=== PATIENT | female | born 1930 | race Caucasian/White ===

== ENCOUNTER 2017-02-25 18:14 | Inpatient (IN) ==
[2017-02-25] MEDS ORDERED: ONDANSETRON 4 MG/2 ML VIAL IV STA (18:34)
[2017-02-25] MEDS ORDERED: hydrALAZINE 20 MG/1 ML VIAL IV STA (18:35)
--- NOTE | 2017-02-25 18:38 | Emergency Department Note ---
Arrival - Arrival Chief Complaint: Dizziness ED Nursing Triage Note: Patient to ER 20 via EMS. Complains of onset of vertigo. Patient got dizzy and almost passed out. EMS reports patient had a bout of bradycardia enroute with a rate in the 40s. Resolved after 20-30 secs. Mode of Arrival: Stretcher Limitations: No Limitations Source: Patient Time Seen by Provider: 02/25/17 18:34 - History of Present Illness HPI Narrative: This 86-year-old white female presents with a history of abrupt onset of dizziness associated with nausea and near syncope. The patient subsequently stabilized after several minutes at rest. She denies any chest pain, shortness of breath, jose vomiting, visual changes, slurred speech, headache, or focal deficit with this episode. The patient walked over to her neighbors who called EMS who on arrival to the scene, found the patient to have a heart rate in the 40s. Currently she states the dizziness has practically gone away but still has some low-grade nausea. She states that she frequently has such episodes when her blood pressure is high and that her current physician is having difficulty keeping her blood pressure under control. Currently she is in no acute medical distress. Onset (ago): hour(s) (Patient presents 3 hours post onset of symptoms) Date of Last Menstrual Period: Hysterectomy Allergies/Adverse Reactions: Allergies Allergy/AdvReac Type Severity Reaction Status Date / Time No Known Allergies Allergy Unverified 02/25/17 19:04 Review of System - Review of System 12 point system: reviewed and no additional remarkable complaints except as stated - Review of System Constitutional: Present: as per HPI Respiratory: Present: as per HPI Cardiovascular: Present: as per HPI Gastrointestinal: Present: as per HPI Neurological: Present: as per HPI Medical,Surgical,& Family Hx - Medical History Cardio: History of: Hypertension Neurology: History of: Dementia - Surgical History Reproductive Surgeries: Surgical HX of;: Hysterectomy - Social History Smoking Status: Never smoker Frequency of Alcohol Use: None Type of Drug Use: None Exam Physical Examination: GENERAL: Well developed, well nourished elderly white female in no acute distress. HEENT: Normocephalic. No trauma. Moist mucous membranes. EOMI. PERRLA. ENT NML NECK: Supple. No adenopathy. CARDIAC: Regular. Heart rate 42, 1/4 mireya, loud p2 CHEST: Clear to auscultation. No respiratory distress. O2 sat 95% ABDOMEN: Soft. Nontender. Active bowel sounds. EXTREMITIES: No trauma. Normal ROM. No pedal edema. SKIN: No diaphoresis. No rash. NEURO: Alert. Oriented 3. Motor, sensory, vibratory intact. No focal deficits. Vital Signs: Vital Signs Temperature 97.3 F L 02/25/17 18:43 Pulse Rate 58 L 02/25/17 18:43 Respiratory Rate 16 02/25/17 18:43 Blood Pressure 225/74 02/25/17 18:43 O2 Sat by Pulse Oximetry 98 02/25/17 18:43 Course - Reevaluation(s) Reevaluation #1: Advised patient because of her evidence of early failure, labile blood pressure , and labile heart rate that she would require hospitalization. - Consultations Consultation #1: Discussed with the hospitalist service who will admit for further evaluation treatment. Results - Labs CBC & BMP: 02/25/17 18:50 02/25/17 18:50 Labs: I have reviewed the laboratory noted the gross normality of results. - Impressions EKG: Sinus rhythm at 65 with occasional PACs. Normal [place] interval and QRS duration. Evidence of left ventricular hypertrophy with early strain pattern. No acute injury pattern noted. - Diagnostic Findings Procedure: Chest x-ray: image reviewed by me, report reviewed by me ( Cardiomegaly with evidence of early bibasilar pulmonary edema), CT: image reviewed by me, report reviewed by me (Head: Minimal cerebral atrophy otherwise negative CT) Disposition Clinical Impression: Congestive heart failure, Labile blood pressure, Near syncope Case discussed with: patient Disposition: Still a Patient Condition: Guarded Time of Disposition: 21:11
[2017-02-25] MEDS ORDERED: ONDANSETRON 4 MG/2 ML VIAL ONE (18:50)
[2017-02-25] MEDS ORDERED: hydrALAZINE 20 MG/1 ML VIAL ONE (18:50)
[2017-02-25 19:08] LABS: Basophils % 0.7 % (0.0-0.8); Eosinophils % 0.5 % (0.00-10.9); Hematocrit 36.1 VOL% (35.7-47.0); Hemoglobin 12.1 GM/DL (12.0-16.0); Immature Granulocytes % 0.2 %; Immature Granulocytes Absolute 0.01 #; Lymphocytes # 0.8 10*3/uL (1.4-4.0); Mean Corpuscular HGB Conc 33.5 GM/DL (32-36); Mean Corpuscular Hemoglobin 31 PG (27-34); Mean Corpuscular Volume 92.6 FL (87-102); Mean Platelet Volume 10.4 FL (9.6-12.0); Monocytes # 0.3 10*3/uL (0.11-0.8); Monocytes % 4.6 % (1.7-12.7); Neutrophils # 4.5 10*3/uL (1.4-7.4); Platelet Count 147 T/CUMM (130-400); Red Cell Distribution Width 12.4 % (9.3-17.3); White Blood Count 5.7 T/CUMM (4-12)
--- NOTE | 2017-02-25 19:09 | CT Report ---
History: Dizziness Date: 02/25/2017 Study: CT head without contrast Comparison exam: No previous Transaxial CT sections were obtained through the head without IV contrast. This CT exam was performed using one or more the following dose reduction techniques: Automated exposure control, adjustment of the MA and/or KV according to patient size, or use of iterative reconstruction technique. The ventricles are midline in position without evidence of hydrocephalus. There is no mass or parenchymal hemorrhage. There is no gross CT evidence of acute cortical stroke. There is minimal cerebral atrophy. There is no extra-axial hematoma. There is moderate distal carotid artery calcification. The partially visualized paranasal sinuses and mastoid air cells are clear. There is no acute abnormality of the calvarium. Impression: No acute intracranial process PROCEDURE INTERPRETED AT [facility] DEPARTMENT OF RADIOLOGY Final Report Signed by: Dr. Ida Rowell
[2017-02-25 19:14] LABS: Apearance,Urine CLEAR (Clear); Bilirubin,Urine Negative (Negative); Blood, Urine Negative (Negative); Glucose,Urine (UA) Negative (Negative); Ketones,Urine 5 mg/dL (Negative); Nitrite,Urine Negative (Negative); Protein,Urine 100 MG/DL; RBC,Urine 3 /HPF (0-4); Squamous Epithelial Cell,Urine Occasional /HPF (0-10); Urine Color Colorless (Yellow); Urine Specific Gravity 1.005 (1.001-1.035); Urine Urobilinogen < 2.0 EU/DL (0.2-1.0); WBC,Urine 2 /HPF (0-6)
[2017-02-25 19:17] LABS: PT Patient Result 10.3 SECS
[2017-02-25 19:18] LABS: Barbiturates Screen,Urine Negative (Negative); Benzodiazepines Screen,Urine Negative (Negative); Cannabinoid Screen,Urine Negative (Negative); Opiate Screen,Urine Negative (Negative); Phencyclidine Screen,Urine Negative (Negative)
[2017-02-25 19:55] LABS: Alanine Aminotransferase 17 U/L (13-56); Albumin 3.9 G/DL (3.4-5.0); Alkaline Phosphatase 61 U/L (45-117); Aspartate Amino Transferase 22 U/L (0-37); Blood Urea Nitrogen 15 MG/DL (7-18); Calcium 8.7 MG/DL (8.5-10.1); Glucose 132 MG/DL (74-106); Osmolality,Calculated 279.5 MOS/KG (273-304); Potassium 3.4 MMOL/L (3.5-5.1); Sodium 139 MMOL/L (136-145); Total Protein 7.3 G/DL (6.4-8.3); Troponin I Only < 0.015 NG/ML (0.00-0.045)
--- NOTE | 2017-02-25 20:34 | XRay Report ---
History: Shortness of breath Date: 02/25/2017 Study: Chest x-ray AP portable Comparison exam: No previous available There is mild cardiomegaly. The pulmonary vasculature is borderline prominent. There is moderate aortic arch calcification. There is no pleural effusion. There is minimal hazy edema in the lower lungs. There is no jose pneumonia. There is osteopenia and mild thoracic spondylosis. Impression: Cardiomegaly and suspected mild CHF PROCEDURE INTERPRETED AT [facility] DEPARTMENT OF RADIOLOGY Final Report Signed by: Dr. Ida Rowell
--- NOTE | 2017-02-25 22:12 | Hospitalist History & Physical ---
History of Present Illness Chief complaint: dizziness History of present illness: Ms. Giles is a 86 year old female who presents with dizzness that happened today while cleaning her house. She states that she just did not feel right. She felt as if she was about to pass out. She notes that her heart was beating "funny". EMS was called and noted brief episodes of bradycardia with heart rates in the 40s. Patient denies any vertigo/lightheadness/jose palpitations/ CP/vision changes/falls. She also endorses some SOB for the past month. She denies any LE swelling/increasing abdominal girth/weight gain/PND/orthopnea. She states that she takes her medications on a regular basis. She states that she has been eating and drinking without any problems. While in the ER, her blood presure was elevated, and she was given hydralazine. She was also found to have CHF. Allergies Allergy/AdvReac Type Severity Reaction Status Date / Time No Known Allergies Allergy Unverified 02/25/17 19:04 Medical,Surgical,& Family Hx - Medical History Cardio: History of: Hypertension Neurology: History of: Dementia - Surgical History Reproductive Surgeries: Surgical HX of;: Hysterectomy - Social History Smoking Status: Never smoker Frequency of Alcohol Use: None Type of Drug Use: None - Constitutional Constitutional: Present: as per HPI. Absent: frequent falls, headache(s) - Cardiovascular Cardiovascular: Present: as per HPI - Respiratory Respiratory: Present: as per HPI. Absent: cough - Gastrointestinal Gastrointestinal: Present: as per HPI. Absent: abdominal pain - Neurological Neurological: Absent: headache(s) Exam - Constitutional Vitals: Period Temp Pulse Resp BP Sys/Greene Pulse Ox Last 24 Hr 97.3 F-97.3 F 58-58 16-16 225-225/74-74 95-98 General appearance: no acute distress - Head Head exam: Present: normal inspection - Eye Eye exam: Present: EOMI Pupils: Present: normal accommodation - ENT ENT exam: Present: normal exam - Respiratory Respiratory exam: Present: decreased breath sounds, rales, other (bibasilar crackles, descent air movement). Absent: rhonchi, wheezes - Cardiovascular Cardiovascular exam: Present: regular rate and rhythm - GI/Abdominal GI/Abdominal exam: Present: normal bowel sounds, soft. Absent: distended, tenderness - Extremities Exam Extremities exam: Absent: edema - Neurological Exam Neurological exam: Present: oriented X3 (hard of hearing) - Psychiatric Psychiatric exam: Present: normal affect, normal mood - Skin Skin exam: Present: normal color Results - Labs CBC & BMP: 02/25/17 18:50 02/25/17 18:50 - Impressions Head CT: no acute abnormalities Cxray: cardiomegaly, mild CHF EKG: NSR with PVCs, LVH with early repolarization Assessment: 1. Presyncopal episode, concerned that dizziness may have been 2nd to TIA given elevated blood pressure 2. Hypertensive crises, initial blood pressure: 225/74 3. New onset CHF, looks euvolemic; suspect cardiac decompensation may be 2nd to uncontrolled blood pressure 4. DYLAN 5. Bradycardia as noted by EMS 6. hypok: mild 7. Comorbid conditions: history of HTN and dementia Plan: telemetry; consult cardiology given reported bradycardia by EMS; will need an echo; check TSH, t4; keep K at least 4 and magnesium at least 2; trend Troponins ; control blood pressure; gentle diuresis; monitor renal functions and UOP; obtain brain MRI and carotid duplex; DVT and GI prophalaxis. The plan of care may be modified as more information becomes available.
[2017-02-25] MEDS ORDERED: FUROSEMIDE 40 MG/4 ML VIAL IV STA (22:33)
[2017-02-25] MEDS ORDERED: POTASSIUM CHLORIDE 20 MEQ TABLET PO STA (22:36)
[2017-02-25] MEDS ORDERED: FUROSEMIDE 40 MG/4 ML VIAL ONE (23:01)
[2017-02-25] MEDS ORDERED: POTASSIUM CHLORIDE 20 MEQ TABLET PO ONE (23:02)
--- NOTE | 2017-02-26 02:54 | EKG Report ---
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
[2017-02-26 06:04] LABS: Calcium 9.3 MG/DL (8.5-10.1); Free T4 (Free Thyroxine) 0.86 NG/DL (0.76-1.46); Magnesium 2.4 MG/DL (1.8-2.4); Osmolality,Calculated 279.5 MOS/KG (273-304); Potassium 3.5 MMOL/L (3.5-5.1); Thyroid Stimulating Hormone 1.32 uIU/ml (0.358-3.74)
--- NOTE | 2017-02-26 08:30 | Cardiology Consult Note ---
<Anny Finney - Last Filed: 02/26/17 09:59> Assessment and Plan - Time spent with patient Time spent with patient: Greater than 30 minutes (1) Bradycardia Status: Acute Assessment and plan: See plan of care listed below. Current Visit: Yes (2) Congestive heart failure Status: Acute Assessment and plan: See plan of care listed below. Current Visit: Yes (3) Hypertensive crisis Status: Acute Assessment and plan: See plan of care listed below. Current Visit: Yes (4) Pre-syncope Status: Acute Assessment and plan: See plan of care listed below. Current Visit: Yes (5) History of dementia Status: Chronic Assessment and plan: See plan of care listed below. Current Visit: Yes (6) Acute kidney injury Status: Acute Assessment and plan: See plan of care listed below. Current Visit: Yes History of Present Illness - Data of Consult Patient: new to practice Consult date: 02/26/17 Requesting Physician: Clive Ward Primary care physician: Armando Augustine - Consult Narrative Reason for consult: bradycardia, new onset CHF History of present illness: Planning Specialist: New to cardiology. (Dr. Becerril, [facility]) PCP: Dr. Armando Augustine Ms. Giles is a 86 year old female without known history of CAD, not routinely followed by cardiology. Patient has cardiac risk factors significant for hypertension, advanced age and sedentary lifestyle. Patient is a lifetime non- smoker and denies any significant family history of heart disease. Patient has a past medical history of significant dementia. She denies any history of congestive heart failure. Reports that she has never undergone cardiac evaluation. Denies history of heart catheterization and stress testing. Cardiology has been consulted to further evaluate patient's bradycardia and new onset congestive heart failure. Patient has a history of significant dementia. Therefore, majority of this information was obtained from medical personnel and patient's electronic medical record. Review of systems unobtainable. No family at bedside. Upon entering the room, patient was lying flat in bed with no acute distress. Not requiring oxygen. When asked what brought her into the hospital, she simply stated "I do not know, I forget a lot." Patient presented to [facility] yesterday evening with complaints of dizziness while cleaning her house. She apparently just did not feel right. She denies experiencing any type of chest pain, heaviness and tightness. EMS was summoned. Upon their arrival, they noticed episodes of bradycardia with patient's heart rate in the 40s. Patient denies jose palpitations, vision changes and falls. She denies prior history of arrhythmias. She also denies orthopnea. Reports that she only uses one pillow every night to sleep. Denies lower extremity edema, increased abdominal girth and weight gain. She actually reports that she has lost weight and is the skinniest she has ever been. Patient does confirm dyspnea on exertion over the past 1 month as well as easy fatigability. On arrival to the emergency department, her blood pressure was noted to be 225/74. Patient does report compliance with her blood pressure medications. Chest x- ray reveals cardiomegaly with suspected mild CHF. BNP 625, in the setting of creatinine of 1.4. EKG reveals sinus rhythm with occasional PVCs. LVH and ST- T changes. Troponin negative 1. This could be secondary to patient's severely uncontrolled hypertension or secondary to underlying coronary artery disease. Patient has never undergone heart catheterization. I will continue to cycle cardiac biomarkers and EKGs and keep patient n.p.o. I will further discuss with Dr. Becerril and await his additional recommendations regarding further cardiac workup. Patient may not be a good candidate for heart catheterization due to her history of dementia. Compliance may be an issue. Daily weights and strict I's and O's. Further recommendations to follow per Dr. Becerril. ASSESSMENT/PLAN 1. BRADYCARDIA - Upon arrival to emergency department, patient's heart rate was 58. Now in the mid 40s. Asymptomatic. EKG reveals sinus bradycardia with occasional PVCs. Will continue to monitor on the telemetry unit. Will further discuss with Dr. Becerril and await his additional recommendations. 2. NEW ONSET CHF - Unknown etiology. Echocardiogram pending. Chest x-ray reveals mild CHF. BNP 625, in the setting of a creatinine 1.4. Received IV Lasix in the emergency department. EKG reveals sinus rhythm with occasional PVCs. LVH and ST-T changes. Troponin negative 1. This could be secondary to patient's severely uncontrolled hypertension or secondary to underlying coronary artery disease. Patient has never undergone heart catheterization. I will continue to cycle cardiac biomarkers and EKGs and keep patient n.p.o. I will further discuss with Dr. Becerril and await his additional recommendations regarding further cardiac workup. Patient may not be a candidate for heart catheterization due to her history of dementia. Compliance may be an issue. Daily weights and strict I's and O's. 3. HYPERTENSIVE CRISIS - Suspect that this is contributing to her congestive heart failure. Blood pressure 225/74 upon admission. Avoiding beta blockade due to bradycardia. Avoiding LUZ inhibitor and ARB due to fear of worsening renal function. At this point, I will increase her Norvasc to 10 mg daily and add hydralazine 25 3 times daily. Do not want to lower her blood pressure too quickly. Will continue to monitor blood pressure and adjust medications accordingly. 4. DIZZINESS/PRESYNCOPE - Head CT without acute abnormality. Carotid ultrasound pending. Patient will undergo MRI today. Suspect possible TIA secondary to her severely uncontrolled hypertension. Patient's bradycardia could also be playing a role. We will continue to monitor patient on the apron man and observe for bradycardia and/or arrhythmias. I will further discuss with Dr. Becerril and await his additional recommendations. 5. HISTORY OF DEMENTIA - Defer management this to attending. 6. ACUTE KIDNEY INJURY - Creatinine 1.4 today. Unknown chronicity. Most likely secondary to patient's uncontrolled BP. Will attempt to achieve BP controll and avoid neophrotoxic medications. Daily BMP. May benefit from renal consult. Will defer to attending. CC: Lorenzo Sanford MD - Home Medications and Allergies Allergies/Adverse Reactions: Allergies Allergy/AdvReac Type Severity Reaction Status Date / Time No Known Allergies Allergy Unverified 02/25/17 19:04 ROS unobtainable: due to dementia Medical,Surgical,& Family Hx - Medical History Cardio: History of: Hypertension Neurology: History of: Dementia - Surgical History Cardiac Surgeries: Patient Denies: Cardiac Catheterization - Family History Family History: Denies;: Family Heart Disease - Social History Smoking Status: Never smoker Frequency of Alcohol Use: None Type of Drug Use: None Marital Status: Single Lives With:: Alone Functional capacity: independent ambulation Physical Examination Vital Signs Temp Pulse Resp BP Pulse Ox 97.3 F L 58 L 16 225/74 95 02/25/17 18:17 02/25/17 18:17 02/25/17 18:17 02/25/17 18:17 02/25/17 18:17 Exam: General: Appears well with no apparent distress. Appears comfortable. Demented. HEENT: PERRL, normocephalic, atraumatic. Mucous membranes moist. No jaundice noted. Conjunctiva moist and clear, sclerae anicteric Neck: No JVD/HJR, no thyromegaly or lymphadenopathy noted. Bilateral carotid bruits. Cardiac: Regular rhythm, bradycardia. No murmur rub or gallop. Lungs: Lungs clear throughout without accessory muscle use to assist the respiratory pattern. Abdomen: Soft, bowel sounds normoactive. Nontender and nondistended. No abdominal bruit or thrill noted. No masses noted. Extremities: No clubbing, cyanosis noted. No edema noted. Capillary refill less than 3 seconds. Skin: No unusual lesions or rashes. No skin breakdown appreciated. Neuro: Awake. Oriented to person. No essential tremor is appreciated. Result/EKG - Labs CBC & BMP: 02/25/17 18:50 02/26/17 04:07 Lab Results: I have reviewed the past 24 hour labs Labs: Laboratory Results - last 24 hr 02/25/17 02/25/17 02/25/17 18:50 18:50 18:50 WBC 5.7 RBC 3.90 Hgb 12.1 Hct 36.1 MCV 92.6 MCH 31 MCHC 33.5 RDW 12.4 Plt Count 147 MPV 10.4 Neut % (Auto) 80.0 H Lymph % (Auto) 14.0 L Pine % (Auto) 4.6 Eos % (Auto) 0.5 Baso % (Auto) 0.7 Neut # (Auto) 4.5 Lymph # (Auto) 0.8 L Pine # (Auto) 0.3 Eos # (Auto) 0.0 Baso # (Auto) 0.0 Immature Gran % 0.2 Nucleated RBC % 0.0 Immature Gran # 0.01 Nucleated RBCs # 0.00 INR 1.0 PT Patient/Control Mix 10.3 Sodium Potassium Chloride Carbon Dioxide Anion Gap BUN Creatinine GFR Calculation BUN/Creatinine Ratio Glucose Calculated Osmolality Calcium Magnesium Total Bilirubin AST ALT Alkaline Phosphatase Total Creatine Kinase CK-MB (CK-2) Troponin I B-Natriuretic Peptide Total Protein Albumin Globulin Albumin/Globulin Ratio Free T4 TSH 3rd Generation Urine Color Colorless Urine Appearance Clear Urine pH 8.0 Ur Specific [place] 1.005 Urine Protein 100 Urine Glucose (UA) Negative Urine Ketones 5 Urine Blood Negative Urine Nitrate Negative Urine Bilirubin Negative Urine Urobilinogen < 2.0 H Urine Leukocytes Negative Urine RBC 3 Urine WBC 2 Ur Squamous Epith Cells Occasional Ur Culture Indicated? Not indicated Urine Opiates Screen Ur Barbiturates Screen Ur Phencyclidine Scrn U Amphetamine/Methamph U Benzodiazepines Scrn U Cocaine Metab Screen U Cannabinoids Screen 02/25/17 02/25/17 02/26/17 18:50 18:50 04:07 WBC RBC Hgb Hct MCV MCH MCHC RDW Plt Count MPV Neut % (Auto) Lymph % (Auto) Pine % (Auto) Eos % (Auto) Baso % (Auto) Neut # (Auto) Lymph # (Auto) Pine # (Auto) Eos # (Auto) Baso # (Auto) Immature Gran % Nucleated RBC % Immature Gran # Nucleated RBCs # INR PT Patient/Control Mix Sodium 139 139 Potassium 3.4 L 3.5 Chloride 104 101 Carbon Dioxide 27 29 Anion Gap 11.4 12.5 BUN 15 16 Creatinine 1.30 H 1.40 H GFR Calculation 39 31 BUN/Creatinine Ratio 11.00 11.00 Glucose 132 H 131 H Calculated Osmolality 279.5 279.5 Calcium 8.7 9.3 Magnesium 2.4 Total Bilirubin 0.40 AST 22 ALT 17 Alkaline Phosphatase 61 Total Creatine Kinase 84 CK-MB (CK-2) 1.4 Troponin I < 0.015 B-Natriuretic Peptide Total Protein 7.3 Albumin 3.9 Globulin 3.4 Albumin/Globulin Ratio 1.1 Free T4 0.86 TSH 3rd Generation 1.220 1.320 Urine Color Urine Appearance Urine pH Ur Specific [place] Urine Protein Urine Glucose (UA) Urine Ketones Urine Blood Urine Nitrate Urine Bilirubin Urine Urobilinogen Urine Leukocytes Urine RBC Urine WBC Ur Squamous Epith Cells Ur Culture Indicated? Urine Opiates Screen Negative Ur Barbiturates Screen Negative Ur Phencyclidine Scrn Negative U Amphetamine/Methamph Negative U Benzodiazepines Scrn Negative U Cocaine Metab Screen Negative U Cannabinoids Screen Negative 02/26/17 04:07 WBC RBC Hgb Hct MCV MCH MCHC RDW Plt Count MPV Neut % (Auto) Lymph % (Auto) Pine % (Auto) Eos % (Auto) Baso % (Auto) Neut # (Auto) Lymph # (Auto) Pine # (Auto) Eos # (Auto) Baso # (Auto) Immature Gran % Nucleated RBC % Immature Gran # Nucleated RBCs # INR PT Patient/Control Mix Sodium Potassium Chloride Carbon Dioxide Anion Gap BUN Creatinine GFR Calculation BUN/Creatinine Ratio Glucose Calculated Osmolality Calcium Magnesium Total Bilirubin AST ALT Alkaline Phosphatase Total Creatine Kinase CK-MB (CK-2) Troponin I B-Natriuretic Peptide 625 H Total Protein Albumin Globulin Albumin/Globulin Ratio Free T4 TSH 3rd Generation Urine Color Urine Appearance Urine pH Ur Specific [place] Urine Protein Urine Glucose (UA) Urine Ketones Urine Blood Urine Nitrate Urine Bilirubin Urine Urobilinogen Urine Leukocytes Urine RBC Urine WBC Ur Squamous Epith Cells Ur Culture Indicated? Urine Opiates Screen Ur Barbiturates Screen Ur Phencyclidine Scrn U Amphetamine/Methamph U Benzodiazepines Scrn U Cocaine Metab Screen U Cannabinoids Screen Specialty Discharge - Follow Up or Referrals <JonePiero - Last Filed: 02/26/17 12:43> History of Present Illness - Consult Narrative History of present illness: Cardiology addendum Patient examined chart reviewed and discussed with nurse Anny Finney RN. Patient is a and lives alone in her home. She does the cooking and cleaning and dusting. Yesterday she had dizziness while cleaning. No jose syncope but she became lightheaded. She denies chest pain. The patient is status post bilateral hip replacements and does use a cane or walker at all times for gait support for the past several years. She does have chronic dyspnea. Lifetime non-smoker. Patient has had hypertension for the past 4 years and reports that she takes lisinopril 5 mg daily. Chest x-ray shows a normal heart size with flattened diaphragms consistent with COPD. There is some cephalization of flow and BNP level 625. EKG shows sinus rhythm with LVH and heart rate 65. Presently telemetry shows heart rate 58. Blood pressure was 225/74 admission. She is now on amlodipine 10 mg daily and hydralazine 25 mg 3 times daily. Plan Holter monitor Echo Doppler Carotid duplex Agree with BP meds and adjust as needed 40 mg Lasix daily CC: Lorenzo Sanford MD Physical Examination Vital Signs Temp Pulse Resp BP Pulse Ox 97.3 F L 58 L 16 225/74 95 02/25/17 18:17 02/25/17 18:17 02/25/17 18:17 02/25/17 18:17 02/25/17 18:17 Result/EKG - Labs CBC & BMP: 02/25/17 18:50 02/26/17 04:07 Labs: Laboratory Results - last 24 hr 02/25/17 02/25/17 02/25/17 18:50 18:50 18:50 WBC 5.7 RBC 3.90 Hgb 12.1 Hct 36.1 MCV 92.6 MCH 31 MCHC 33.5 RDW 12.4 Plt Count 147 MPV 10.4 Neut % (Auto) 80.0 H Lymph % (Auto) 14.0 L [place] % (Auto) 4.6 Eos % (Auto) 0.5 Baso % (Auto) 0.7 Neut # (Auto) 4.5 Lymph # (Auto) 0.8 L [place] # (Auto) 0.3 Eos # (Auto) 0.0 Baso # (Auto) 0.0 Immature Gran % 0.2 Nucleated RBC % 0.0 Immature Gran # 0.01 Nucleated RBCs # 0.00 INR 1.0 PT Patient/Control Mix 10.3 Sodium Potassium Chloride Carbon Dioxide Anion Gap BUN Creatinine GFR Calculation BUN/Creatinine Ratio Glucose Calculated Osmolality Calcium Magnesium Total Bilirubin AST ALT Alkaline Phosphatase Total Creatine Kinase CK-MB (CK-2) Troponin I B-Natriuretic Peptide Total Protein Albumin Globulin Albumin/Globulin Ratio Free T4 TSH 3rd Generation Urine Color Colorless Urine Appearance Clear Urine pH 8.0 Ur Specific [place] 1.005 Urine Protein 100 Urine Glucose (UA) Negative Urine Ketones 5 Urine Blood Negative Urine Nitrate Negative Urine Bilirubin Negative Urine Urobilinogen < 2.0 H Urine Leukocytes Negative Urine RBC 3 Urine WBC 2 Ur Squamous Epith Cells Occasional Ur Culture Indicated? Not indicated Urine Opiates Screen Ur Barbiturates Screen Ur Phencyclidine Scrn U Amphetamine/Methamph U Benzodiazepines Scrn U Cocaine Metab Screen U Cannabinoids Screen 02/25/17 02/25/17 02/26/17 18:50 18:50 04:07 WBC RBC Hgb Hct MCV MCH MCHC RDW Plt Count MPV Neut % (Auto) Lymph % (Auto) [place] % (Auto) Eos % (Auto) Baso % (Auto) Neut # (Auto) Lymph # (Auto) Pine # (Auto) Eos # (Auto) Baso # (Auto) Immature Gran % Nucleated RBC % Immature Gran # Nucleated RBCs # INR PT Patient/Control Mix Sodium 139 139 Potassium 3.4 L 3.5 Chloride 104 101 Carbon Dioxide 27 29 Anion Gap 11.4 12.5 BUN 15 16 Creatinine 1.30 H 1.40 H GFR Calculation 39 31 BUN/Creatinine Ratio 11.00 11.00 Glucose 132 H 131 H Calculated Osmolality 279.5 279.5 Calcium 8.7 9.3 Magnesium 2.4 Total Bilirubin 0.40 AST 22 ALT 17 Alkaline Phosphatase 61 Total Creatine Kinase 84 CK-MB (CK-2) 1.4 Troponin I < 0.015 B-Natriuretic Peptide Total Protein 7.3 Albumin 3.9 Globulin 3.4 Albumin/Globulin Ratio 1.1 Free T4 0.86 TSH 3rd Generation 1.220 1.320 Urine Color Urine Appearance Urine pH Ur Specific [place] Urine Protein Urine Glucose (UA) Urine Ketones Urine Blood Urine Nitrate Urine Bilirubin Urine Urobilinogen Urine Leukocytes Urine RBC Urine WBC Ur Squamous Epith Cells Ur Culture Indicated? Urine Opiates Screen Negative Ur Barbiturates Screen Negative Ur Phencyclidine Scrn Negative U Amphetamine/Methamph Negative U Benzodiazepines Scrn Negative U Cocaine Metab Screen Negative U Cannabinoids Screen Negative 02/26/17 02/26/17 04:07 08:41 WBC RBC Hgb Hct MCV MCH MCHC RDW Plt Count MPV Neut % (Auto) Lymph % (Auto) [place] % (Auto) Eos % (Auto) Baso % (Auto) Neut # (Auto) Lymph # (Auto) Pine # (Auto) Eos # (Auto) Baso # (Auto) Immature Gran % Nucleated RBC % Immature Gran # Nucleated RBCs # INR PT Patient/Control Mix Sodium Potassium Chloride Carbon Dioxide Anion Gap BUN Creatinine GFR Calculation BUN/Creatinine Ratio Glucose Calculated Osmolality Calcium Magnesium Total Bilirubin AST ALT Alkaline Phosphatase Total Creatine Kinase 154 D CK-MB (CK-2) 2.9 Troponin I 0.027 B-Natriuretic Peptide 625 H Total Protein Albumin Globulin Albumin/Globulin Ratio Free T4 TSH 3rd Generation Urine Color Urine Appearance Urine pH Ur Specific [place] Urine Protein Urine Glucose (UA) Urine Ketones Urine Blood Urine Nitrate Urine Bilirubin Urine Urobilinogen Urine Leukocytes Urine RBC Urine WBC Ur Squamous Epith Cells Ur Culture Indicated? Urine Opiates Screen Ur Barbiturates Screen Ur Phencyclidine Scrn U Amphetamine/Methamph U Benzodiazepines Scrn U Cocaine Metab Screen U Cannabinoids Screen
[2017-02-26] MEDS ORDERED: POTASSIUM CHLORIDE 20 MEQ TABLET PO ONE (08:42)
[2017-02-26] MEDS ORDERED: hydrALAZINE 20 MG/1 ML VIAL IV PRN (08:43)
[2017-02-26] MEDS ORDERED: amLODIPine 5 MG TABLET PO SCH (09:00)
--- NOTE | 2017-02-26 09:03 | Ultrasound Report ---
Carotid artery ultrasound Indication: Near syncope, Cerebrovascular occlusion Comparison: None available Color Doppler flow and spectral analysis was performed. Findings: Moderate amount of atherosclerotic plaque with calcification is present in right proximal internal carotid artery. Small amount of atherosclerotic plaque is present in the left proximal internal carotid artery calcification. Right peak systolic velocity: Right proximal Internal Carotid Artery is 268.6 cm/s. Ratio of flow is 2.5 Right distal Internal Carotid is 113.0 cm/s . Left peak systolic velocity: Left proximal Internal carotid Artery is 103.5 cm/s . Ratio of flow is 0.9 Left distal Internal carotid Artery is 99.0cm/s Bilateral antegrade vertebral flow is seen. 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 No significant vascular no cyst seen in the left internal carotid artery. Consensus conference on the carotid ultrasound criteria used. Ultrasound images were captured and stored. PROCEDURE INTERPRETED AT [facility] DEPARTMENT OF RADIOLOGY Final Report Signed by: Dr. Lul Correa
[2017-02-26] MEDS: amLODIPine 10 MG TABLET PO SCH (09:23)
[2017-02-26] MEDS: hydrALAZINE 25 MG TABLET PO SCH ×3 (09:24→21:00)
[2017-02-26 09:32] LABS: Troponin I Only 0.027 NG/ML (0.00-0.045)
--- NOTE | 2017-02-26 10:22 | XRay Report ---
Orbit screen Indication: MRI screening Findings: No evidence of radiopaque foreign bodies or other metallic densities project over the orbits. No other abnormality seen. Impression: No evidence of orbit abnormality demonstrated. PROCEDURE INTERPRETED AT [facility] DEPARTMENT OF RADIOLOGY Final Report Signed by: Dr. Lul Correa
--- NOTE | 2017-02-26 10:25 | XRay Report ---
XR chest 2V Indication: MRI evaluation Comparison: 25 February 2017 Findings: The heart and mediastinum are normal in size and configuration. The pulmonary vascularity is normal in caliber. Lung volumes are increased with prominent bronchial markings. No lung infiltrates, effusions, pneumothorax or other abnormality is demonstrated. Impression: Chronic lung changes. No acute process or significant change. PROCEDURE INTERPRETED AT [facility] DEPARTMENT OF RADIOLOGY Final Report Signed by: Dr. Lul Correa
--- NOTE | 2017-02-26 10:27 | XRay Report ---
XR abdomen 1V Indication: Abdominal pain Comparison: None available Findings: No free fluid or free air seen. The bowel gas pattern appears within normal limits. There are some vascular arterial-like calcification in the upper abdomen. No other abnormal calcifications are present. Bilateral hip arthroplasties are present. No other abnormality is identified. Impression: Bilateral hip arthroplasties. No other evidence of abnormality demonstrated PROCEDURE INTERPRETED AT [facility] DEPARTMENT OF RADIOLOGY Final Report Signed by: Dr. Lul Correa
--- NOTE | 2017-02-26 13:19 | EKG Report ---
Stationary ECG Study [facility] Test Date: 02/26/2017 1:21:45 PM Pat Name: MABEL ANDREWS Department: Room: 294 Gender: F Resident Service Coordinator: : [id number] Requested by: Anny Finney Order Number: [id number] Reading MD: PHILIP GIBBONS Intervals [place] Rate: 52 P: 50 DE: 149 QRS: 14 QRSD: 105 T: -1 QT: 490 QTc: 469 Interpretive Statements SINUS BRADYCARDIA MINIMAL VOLTAGE CRITERIA FOR LVH, CONSIDER NORMAL VARIANT Electronically Signed On 02-27-17 12:27:25 CDT by PHILIP GIBBONS [email or web address]
--- NOTE | 2017-02-26 14:23 | Magnetic Resonance Report ---
MRI brain without contrast Indication: Vertigo, hypertension Comparison: CT 25 February 2017 Technique: Axial sagittal and coronal imaging of the brain is performed without contrast. T1, T2, FLAIR and diffusion weighted sequences are performed. Findings: No evidence of restricted diffusion seen. No evidence of intracranial hemorrhage, mass, mass effect or midline shift is seen. There is moderate diffuse cerebral atrophy. There are faint areas of white matter T2 signal hyperintensity in the periventricular white matter both cerebral hemispheres. Small focus of fluid signal is seen in the superior right caudate lobe, likely previous infarct. Remaining brain parenchyma has normal signal and differentiation. The ventricles and cisterns are appropriate in caliber. Posterior fossa, mid brain and pituitary gland appear within normal limits. No evidence of cranial or skull base abnormality seen. Impression: No evidence of acute findings demonstrated. Moderate diffuse cerebral atrophy. Areas of white matter T2 signal hyperintensity in both cerebral hemispheres, likely chronic microvascular change. Focus of fluid signal in the right superior caudate, likely chronic lacunar infarct PROCEDURE INTERPRETED AT [facility] DEPARTMENT OF RADIOLOGY Final Report Signed by: Dr. Lul Correa
[2017-02-26] MEDS: FUROSEMIDE 40 MG TABLET PO SCH (15:16)
[2017-02-26 15:33] LABS: Troponin I Only 0.029 NG/ML (0.00-0.045)
--- NOTE | 2017-02-26 16:40 | Hospitalist Progress Note ---
Assessment and Plan - Time spent with patient Time spent with patient: Greater than 30 minutes (1) Bradycardia Status: Acute Assessment and plan: Monitor on telemetry. Cardiology following. Echo reviewed. Current Visit: Yes (2) Congestive heart failure Status: Acute Assessment and plan: Lasix given. Follow-up echo. Current Visit: Yes Qualifiers: Congestive heart failure type: unspecified congestive heart failure type Congestive heart failure chronicity: unspecified congestive heart failure chronicity Qualified Code(s): I50.9 - Heart failure, unspecified (3) Hypertensive crisis Status: Acute Assessment and plan: Blood pressure medications adjusted. Blood pressure improving. Current Visit: Yes (4) Pre-syncope Status: Acute Assessment and plan: Right proximal carotid stenosis of greater than 70% ultrasound. Current Visit: Yes (5) History of dementia Status: Chronic Current Visit: Yes (6) Stenosis of right internal carotid artery Status: Acute Assessment and plan: 70% by ultrasound Current Visit: Yes Hospitalist: Subjective Interval history: Patient seen and examined. No acute events overnight. Case discussed with nursing staff. Labs reviewed. MRI reveals no acute stroke. Chronic lacunar infarct noted. Case management notes reviewed. Blood pressure under better control with the start of new medications. Cardiology consult noted, reviewed and appreciated. Carotid stenosis involving the right internal carotid of greater than 70% noted. Exam - Constitutional Vitals: Period Temp Pulse Resp BP Sys/Greene Pulse Ox Last 24 Hr 97.3 F-98.9 F 45-77 12-20 146-225/65-130 93-100 Exam: Constitutional System: No distress. No tremulousness. Head: Normocephalic, atraumatic. Ears, Nose and Throat System: No pain or tenderness. No epistaxis or discharge Eyes System: Pupils equal, round, and reactive. Extraocular muscles intact. Neck: Supple, without adenopathy, No jugular venous distention. No thyromegaly, neck mass, or prior surgery apparent. Respiratory System: Chest clear to auscultation. Cardiovascular System: Heart with regular rate and rhythm. No murmur. GI System: Abdomen soft, nontender. Normo active bowel sounds present. Musculoskeletal System: limbs with no pedal edema. Full distal pulses. Neurological System: No discernable sensory deficit. No aphasia Psychiatric System: Conversation is rational Results - Labs CBC & BMP: 02/25/17 18:50 02/26/17 04:07 Lab Results: I have reviewed the past 24 hour labs Specialty Discharge - Follow Up or Referrals
--- NOTE | 2017-02-26 20:07 | ECHO Report ---
Caro Giles Exam Date: 02/26/2017 15:58 Referring Physician: Technologist: Tara Johnson Age: 86 Ht (in): 62 Wt (lb): 122 Gender: F Exam Location: [facility] Echo Indications: Bradycardia, CHF, HTN, pre-syncope BP: 173 / 75 HR: Rhythm: Sinus Technical Quality: Fair IMPRESSIONS EF 55 %. Grade I/IV diastolic dysfunction (abnormal relaxation filling pattern), normal to mildly elevated filling pressures. Normal right ventricular size. Moderately increased right atrial size. Moderately increased left atrial size. Mildly thickened mitral valve. Mitral annular calcification. Trace mitral valve regurgitation. Aortic valve sclerosis. Trace aortic valve regurgitation. Moderate tricuspid valve regurgitation. PAP45 mmHG. Pulmonic valve not well visualized. No pericardial effusion. Normal size aortic root and proximal ascending aorta. MEASUREMENTS (Male / Female) Normal Values 2D ECHO LV Diastolic Diameter PLAX 4.4 cm 4.2 - 5.9 / 3.9 - 5.3 cm LV Systolic Diameter PLAX 1.7 cm LV Fractional Shortening PLAX 61.2 % IVS Diastolic Thickness 1.1 cm 0.6 - 1.0 / 0.6 - 0.9 cm LVPW Diastolic Thickness 0.9 cm 0.6 - 1.0 / 0.6 - 0.9 cm Aortic Root Diameter 2.8 cm LA Systolic Diameter LX 4.7 cm 3.0 - 4.0 / 2.7 - 3.8 cm DOPPLER TR Peak Velocity 277.0 cm/s TR Peak Gradient 30.7 mmHg FINDINGS Left Ventricle EF 55%. Grade I/IV diastolic dysfunction (abnormal relaxation filling pattern), normal to mildly elevated filling pressures. Right Ventricle Normal right ventricular size. Right Atrium Moderately increased right atrial size. Left Atrium Moderately increased left atrial size. Mitral Valve Mildly thickened mitral valve. Mitral annular calcification. Trace mitral valve regurgitation. Aortic Valve Aortic valve sclerosis. Trace aortic valve regurgitation. . Tricuspid Valve Morphologically normal tricuspid valve. Moderate tricuspid valve regurgitation. PAP45 mmHG. Pulmonic Valve Pulmonic valve not well visualized. Pericardium No pericardial effusion. Aorta Normal size aortic root and proximal ascending aorta. Seven Becerril (Electronically Signed) Final Date: 26 February 2017 20:06
[2017-02-26 21:41] LABS: Troponin I Only 0.023 NG/ML (0.00-0.045)
[2017-02-27 06:00] LABS: Basophils % 0.6 % (0.0-0.8); Eosinophils # 0.1 10*3/uL (0.0-0.87); Eosinophils % 1.5 % (0.00-10.9); Hematocrit 36.4 VOL% (35.7-47.0); Hemoglobin 12.1 GM/DL (12.0-16.0); Immature Granulocytes % 0.2 %; Immature Granulocytes Absolute 0.01 #; Lymphocytes # 1.1 10*3/uL (1.4-4.0); Lymphocytes % 20.6 % (21.3-54.2); Mean Corpuscular HGB Conc 33.2 GM/DL (32-36); Mean Corpuscular Hemoglobin 31 PG (27-34); Mean Corpuscular Volume 92.4 FL (87-102); Mean Platelet Volume 10.4 FL (9.6-12.0); Monocytes # 0.5 10*3/uL (0.11-0.8); Monocytes % 8.3 % (1.7-12.7); Neutrophils # 3.7 10*3/uL (1.4-7.4); Neutrophils % 68.8 % (38.7-73.9); Platelet Count 171 T/CUMM (130-400); Red Blood Count 3.94 MC/CUMM (3.8-5.5); Red Cell Distribution Width 12.5 % (9.3-17.3); White Blood Count 5.4 T/CUMM (4-12)
[2017-02-27 06:27] LABS: Calcium 8.6 MG/DL (8.5-10.1); Magnesium 2.4 MG/DL (1.8-2.4); Osmolality,Calculated 288.1 MOS/KG (273-304); Potassium 3.8 MMOL/L (3.5-5.1)
--- NOTE | 2017-02-27 07:40 | EKG Report ---
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
[2017-02-27] MEDS: ALPRAZolam 0.5 MG TABLET PO PRN (08:00)
[2017-02-27] MEDS: hydrALAZINE 25 MG TABLET PO SCH ×3 (10:31→21:09)
[2017-02-27] MEDS: amLODIPine 10 MG TABLET PO SCH (10:31)
[2017-02-27] MEDS: FUROSEMIDE 40 MG TABLET PO SCH (10:31)
--- NOTE | 2017-02-27 10:58 | Cardiology Progress Note ---
Addendum entered and electronically signed by Anny Finney NP 02/27/17 11:00 : Cardiac biomarkers have been negative 4. EKG reviewed. No complaints of angina. Original Note: <Anny Finney - Last Filed: 02/27/17 10:36> Assessment and Plan (1) Bradycardia Status: Acute Assessment and plan: See plan of care listed below. Current Visit: Yes (2) Congestive heart failure Status: Acute Assessment and plan: See plan of care listed below. Current Visit: Yes Qualifiers: Congestive heart failure type: diastolic Congestive heart failure chronicity: acute Qualified Code(s): I50.31 - Acute diastolic (congestive) heart failure (3) Hypertensive crisis Status: Acute Assessment and plan: See plan of care listed below. Current Visit: Yes (4) Pre-syncope Status: Acute Assessment and plan: See plan of care listed below. Current Visit: Yes (5) History of dementia Status: Chronic Assessment and plan: See plan of care listed below. Current Visit: Yes (6) Acute kidney injury Status: Acute Assessment and plan: See plan of care listed below. Current Visit: Yes (7) Stenosis of right internal carotid artery Status: Acute Assessment and plan: See plan of care listed below. 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 (Dr. Becerril, new) PCP: Dr. Armando COELHO Ms. Giles is a 86 year old female with PMH including: hypertension and dementia. She denies any history of congestive heart failure. Reports that she has never undergone cardiac evaluation. Denies history of heart catheterization and stress testing. She was admitted to [facility] February 25, 2017 with new onset CHF, hypertensive crisis, bradycardia and presyncope. Cardiology has been consulted to further evaluate patient's bradycardia and new onset congestive heart failure. FEBRUARY 27, 2017 Patient was seen and examined on the telemetry unit. She has done well overnight and is without complaints this morning. She denies chest pain, heaviness and tightness. Reports that her breathing has greatly improved after being diuresed overnight. Weight is unchanged. She reports that she has been up and down to the bathroom several times. She has done well with this and denies dyspnea on exertion. Denies dizziness and presyncope. MRI yesterday did not reveal any acute findings. Chronic lacunar infarct noted. Carotid stenosis to the right internal carotid artery greater than 70% noted. Echocardiogram revealed preserved ejection fraction of 55%. Grade 1 diastolic dysfunction. Moderate TR, PAP of 45 mmHg. No pericardial effusion. Telemetry has been reviewed. Patient's heart rate has ranged between 45 and 55 overnight. Currently wearing Holter monitor. I will discuss with Dr. Becerril and await his additional recommendations. ASSESSMENT/PLAN 1. BRADYCARDIA - Heart rate ranging between 45 - 55. Sinus bradycardia. Asymptomatic. Patient currently wearing a Holter monitor. Dr. Becerril to interpret. 2. NEW ONSET CHF, DIASTOLIC DYSFUNCTION - Secondary to diastolic dysfunction and hypertensive crisis. Echocardiogram revealed preserved ejection fraction of 55%. Grade 1 diastolic dysfunction. Moderate TR, PAP of 45 mmHg. No pericardial effusion. We will continue with IV Lasix. Will monitor renal function closely while diuresing with daily BMP. Weight is unchanged overnight. Continue to monitor daily weights and strict I's and O's. 3. HYPERTENSIVE CRISIS - Suspect that this is contributing to her congestive heart failure. Blood pressure 225/74 upon admission. Avoiding beta blockade due to bradycardia. Avoiding LUZ inhibitor and ARB due to fear of worsening renal function. Blood pressure has improved. However, it remains abnormal in control. I will increase patient's hydralazine today. Will continue to monitor blood pressure and adjust medications accordingly. 4. DIZZINESS/PRESYNCOPE - Head CT without acute abnormality. Carotid stenosis to the right internal carotid artery greater than 70% noted. MRI yesterday did not reveal any acute findings. Chronic lacunar infarct noted. Patient is currently wearing Holter monitor. Dr. Becerril will read. I will further discuss with Dr. Becerril and await his additional recommendations. 5. HISTORY OF DEMENTIA - Defer management this to attending. 6. ACUTE KIDNEY INJURY - Creatinine 1.9 today. Unknown chronicity. Most likely secondary to patient's uncontrolled BP. Will attempt to achieve BP control and avoid neophrotoxic medications. Daily BMP. May benefit from renal consult. Will defer to attending. 7. CAROTID ARTERY STENOSIS - Carotid stenosis to the right internal carotid artery greater than 70% noted. Defer to attending. Exam (Progress Note) - Constitutional Vitals: Period Temp Pulse Resp BP Sys/Greene Pulse Ox Last 24 Hr 97.6 F-98.4 F 47-52 14-20 121-187/56-80 93-98 Exam: General: Appears well with no apparent distress. Appears comfortable. Demented. HEENT: PERRL, normocephalic, atraumatic. Mucous membranes moist. No jaundice noted. Conjunctiva moist and clear, sclerae anicteric Neck: No JVD/HJR, no thyromegaly or lymphadenopathy noted. Bilateral carotid bruits. Cardiac: Regular rhythm, bradycardia. No murmur rub or gallop. Lungs: Lungs clear throughout without accessory muscle use to assist the respiratory pattern. Abdomen: Soft, bowel sounds normoactive. Nontender and nondistended. No abdominal bruit or thrill noted. No masses noted. Extremities: No clubbing, cyanosis noted. No edema noted. Capillary refill less than 3 seconds. Skin: No unusual lesions or rashes. No skin breakdown appreciated. Neuro: Awake. Oriented to person. No essential tremor is appreciated. Result/EKG - Labs CBC & BMP: 02/27/17 05:29 02/27/17 05:29 Lab Results: I have reviewed the past 24 hour labs Labs: Laboratory Results - last 24 hr 02/26/17 02/26/17 02/27/17 14:28 20:49 05:29 WBC 5.4 RBC 3.94 Hgb 12.1 Hct 36.4 MCV 92.4 MCH 31 MCHC 33.2 RDW 12.5 Plt Count 171 MPV 10.4 Neut % (Auto) 68.8 Lymph % (Auto) 20.6 L [place] % (Auto) 8.3 Eos % (Auto) 1.5 Baso % (Auto) 0.6 Neut # (Auto) 3.7 Lymph # (Auto) 1.1 L [place] # (Auto) 0.5 Eos # (Auto) 0.1 Baso # (Auto) 0.0 Immature Gran % 0.2 Nucleated RBC % 0.0 Immature Gran # 0.01 Nucleated RBCs # 0.00 Sodium Potassium Chloride Carbon Dioxide Anion Gap BUN Creatinine GFR Calculation BUN/Creatinine Ratio Glucose Calculated Osmolality Calcium Magnesium Total Creatine Kinase 152 153 CK-MB (CK-2) 2.8 2.4 Troponin I 0.029 0.023 02/27/17 05:29 WBC RBC Hgb Hct MCV MCH MCHC RDW Plt Count MPV Neut % (Auto) Lymph % (Auto) [place] % (Auto) Eos % (Auto) Baso % (Auto) Neut # (Auto) Lymph # (Auto) [place] # (Auto) Eos # (Auto) Baso # (Auto) Immature Gran % Nucleated RBC % Immature Gran # Nucleated RBCs # Sodium 142 Potassium 3.8 Chloride 105 Carbon Dioxide 30 Anion Gap 10.8 BUN 28 H Creatinine 1.90 H GFR Calculation 21 BUN/Creatinine Ratio 14.00 Glucose 94 Calculated Osmolality 288.1 Calcium 8.6 Magnesium 2.4 Total Creatine Kinase CK-MB (CK-2) Troponin I Specialty Discharge - Follow Up or Referrals Follow up with: Harlan Guevara MD [Physician] - (follow up in 6months with carotid us Appt in recall, office will contact and mail information for appt. spoke with nurse Patience. ) <Piero Becerril - Last Filed: 02/27/17 15:18> Cardiology - PN: Subj Interval history: Cardiology addendum Chart reviewed patient examined and discussed with nurse Anny Finney. She feels better. No dizziness headache or pain. Appetite fair. Telemetry shows sinus bradycardia in the 50s and 60s no pauses or A. fib. Blood pressure much better. 138/78 in the right arm by me. O2 sat 94% on room air. MRI of the brain showed diffuse cerebral atrophy but no acute stroke and an old chronic lacunar infarct in the right superior cardia Holter coming off later today. Plan Monitor rhythm and blood pressure 40 mg Lasix daily Exam (Progress Note) - Constitutional Vitals: Period Temp Pulse Resp BP Sys/Greene Pulse Ox Last 24 Hr 97.6 F-98.4 F 47-52 14-20 121-187/56-79 93-98 Result/EKG - Labs CBC & BMP: 02/27/17 05:29 02/27/17 05:29 Labs: Laboratory Results - last 24 hr 02/26/17 02/26/17 02/27/17 14:28 20:49 05:29 WBC 5.4 RBC 3.94 Hgb 12.1 Hct 36.4 MCV 92.4 MCH 31 MCHC 33.2 RDW 12.5 Plt Count 171 MPV 10.4 Neut % (Auto) 68.8 Lymph % (Auto) 20.6 L [place] % (Auto) 8.3 Eos % (Auto) 1.5 Baso % (Auto) 0.6 Neut # (Auto) 3.7 Lymph # (Auto) 1.1 L [place] # (Auto) 0.5 Eos # (Auto) 0.1 Baso # (Auto) 0.0 Immature Gran % 0.2 Nucleated RBC % 0.0 Immature Gran # 0.01 Nucleated RBCs # 0.00 Sodium Potassium Chloride Carbon Dioxide Anion Gap BUN Creatinine GFR Calculation BUN/Creatinine Ratio Glucose Calculated Osmolality Calcium Magnesium Total Creatine Kinase 152 153 CK-MB (CK-2) 2.8 2.4 Troponin I 0.029 0.023 02/27/17 05:29 WBC RBC Hgb Hct MCV MCH MCHC RDW Plt Count MPV Neut % (Auto) Lymph % (Auto) [place] % (Auto) Eos % (Auto) Baso % (Auto) Neut # (Auto) Lymph # (Auto) [place] # (Auto) Eos # (Auto) Baso # (Auto) Immature Gran % Nucleated RBC % Immature Gran # Nucleated RBCs # Sodium 142 Potassium 3.8 Chloride 105 Carbon Dioxide 30 Anion Gap 10.8 BUN 28 H Creatinine 1.90 H GFR Calculation 21 BUN/Creatinine Ratio 14.00 Glucose 94 Calculated Osmolality 288.1 Calcium 8.6 Magnesium 2.4 Total Creatine Kinase CK-MB (CK-2) Troponin I
--- NOTE | 2017-02-27 13:49 | Vascular Surgery Consult Note ---
History of Present Illness Chief complaint: carotid stenosis History of present illness: Ms. Giles is a 86 year old female Mrs. Giles is an 86-year-old woman admitted with some congestive heart failure and fluid overload and has responded well and is feeling much clear admission she is noted to have carotid bruits and carotid ultrasound has been done suggest a 70% or greater stenosis of the right internal carotid artery. His Giles reports no history of stroke TIA amaurosis or other symptoms and has been told in the past that she had carotid stenosis but she does not recall by. I have reviewed her carotid ultrasound and it does suggest to me a less than critical stenosis of the right internal carotid artery. In discussing this with Ms. Giles I think at this point in time she should not be considered for carotid endarterectomy but I think a reasonable follow-up with ultrasound is appropriate. I will tentatively schedule her for carotid ultrasound and appointment with me in 6 months is for left follow-up she wishes to continue it with Dr. Reynolds is her regular primary care physician and he should be advised of the findings that we have here. Home Medications Medication Instructions Recorded Confirmed Type Lisinopril [Zestril] 5 mg PO DAILY 02/26/17 02/26/17 History Allergies Allergy/AdvReac Type Severity Reaction Status Date / Time No Known Allergies Allergy Unverified 02/25/17 19:04 Medical,Surgical,& Family Hx - Medical History Cardio: History of: Hypertension Neurology: History of: Dementia Musculoskeletal: No history of: Amputation - Surgical History Cardiac Surgeries: Patient Denies: Cardiac Catheterization Thoracic Surgeries: Patient denies;: Organ Transplant, Lobectomy Neurologic Surgeries: Patient denies: Neurologic Surgery Reproductive Surgeries: Surgical HX of;: Gynecologic Surgery, Hysterectomy Patient denies;: Genitourinary Surgery - Family History Family History: Denies;: Family Heart Disease - Social History Smoking Status: Never smoker Frequency of Alcohol Use: None Type of Drug Use: None Exam - Constitutional Vitals: Period Temp Pulse Resp BP Sys/Greene Pulse Ox Last 24 Hr 97.6 F-98.4 F 47-52 14-20 121-187/56-79 93-98 Results - Labs CBC & BMP: 02/27/17 05:29 02/27/17 05:29 Specialty Discharge - Follow Up or Referrals
--- NOTE | 2017-02-27 13:50 | Event Note ---
I would also suggest some degree of antiplatelet therapy such as 81 mg aspirin if not contraindicated
--- NOTE | 2017-02-27 14:58 | Hospitalist Progress Note ---
Assessment and Plan (1) Bradycardia Status: Acute Assessment and plan: Monitor on telemetry. Cardiology following. Echo reviewed. EF 55 %. Grade I/IV diastolic dysfunction (abnormal relaxation filling pattern), normal to mildly elevated filling pressures. Current Visit: Yes (2) Congestive heart failure Status: Acute Assessment and plan: Lasix given. echo: EF 55 %. Grade I/IV diastolic dysfunction (abnormal relaxation filling pattern), normal to mildly elevated filling pressures. Current Visit: Yes Qualifiers: Congestive heart failure type: diastolic Congestive heart failure chronicity: acute Qualified Code(s): I50.31 - Acute diastolic (congestive) heart failure (3) Hypertensive crisis Status: Resolved Assessment and plan: Blood pressure medications adjusted. Blood pressure improving. Current Visit: Yes (4) Pre-syncope Status: Resolved Assessment and plan: Right proximal carotid stenosis of greater than 70% ultrasound. 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 Surgery consult noted. Continue 81 mg aspirin daily. Follow-up with Dr. Valladares in 6 months with repeat carotid ultrasound. Current Visit: Yes Hospitalist: Subjective Interval history: Patient seen and examined. No acute events overnight. Case discussed with nursing staff. Labs reviewed. Carotid ultrasound showed stenosis of 70%. Surgery consult placed earlier this morning and reviewed. Will continue aspirin. Renal function worsening. Recommend decreased dose of Lasix. Avoid nephrotoxic medications. Plan for discharge home tomorrow Exam - Constitutional Vitals: Period Temp Pulse Resp BP Sys/Greene Pulse Ox Last 24 Hr 97.6 F-98.4 F 47-52 14-20 121-187/56-79 93-98 Exam: Constitutional System: No distress. No tremulousness. Head: Normocephalic, atraumatic. Ears, Nose and Throat System: No pain or tenderness. No epistaxis or discharge Eyes System: Pupils equal, round, and reactive. Extraocular muscles intact. Neck: Supple, without adenopathy, No jugular venous distention. Respiratory System: Chest clear to auscultation. Cardiovascular System: Heart with regular rate and rhythm. No murmur. GI System: Abdomen soft, nontender. Normo active bowel sounds present. Musculoskeletal System: limbs with no pedal edema. Full distal pulses. Neurological System: No discernable sensory deficit. No aphasia Psychiatric System: Conversation is rational Results - Labs CBC & BMP: 02/27/17 05:29 02/27/17 05:29 Lab Results: I have reviewed the past 24 hour labs Specialty Discharge - Follow Up or Referrals Follow up with: Harlan Guevara MD [Physician] - (follow up in 6months with carotid us )
[2017-02-28 05:51] LABS: Basophils % 0.4 % (0.0-0.8); Eosinophils # 0.1 10*3/uL (0.0-0.87); Eosinophils % 1.6 % (0.00-10.9); Hematocrit 37.7 VOL% (35.7-47.0); Hemoglobin 12.6 GM/DL (12.0-16.0); Immature Granulocytes % 0.4 %; Immature Granulocytes Absolute 0.03 #; Lymphocytes # 1.2 10*3/uL (1.4-4.0); Lymphocytes % 17.2 % (21.3-54.2); Mean Corpuscular HGB Conc 33.4 GM/DL (32-36); Mean Corpuscular Hemoglobin 31 PG (27-34); Mean Corpuscular Volume 92.6 FL (87-102); Mean Platelet Volume 10.5 FL (9.6-12.0); Monocytes # 0.6 10*3/uL (0.11-0.8); Neutrophils # 4.9 10*3/uL (1.4-7.4); Neutrophils % 71.4 % (38.7-73.9); Platelet Count 177 T/CUMM (130-400); Red Blood Count 4.07 MC/CUMM (3.8-5.5); Red Cell Distribution Width 12.6 % (9.3-17.3); White Blood Count 6.9 T/CUMM (4-12)
[2017-02-28 06:16] LABS: Calcium 8.7 MG/DL (8.5-10.1); Magnesium 2.4 MG/DL (1.8-2.4); Osmolality,Calculated 288.3 MOS/KG (273-304); Potassium 3.8 MMOL/L (3.5-5.1)
[2017-02-28] MEDS: FUROSEMIDE 40 MG TABLET PO SCH (08:48)
[2017-02-28] MEDS: hydrALAZINE 25 MG TABLET PO SCH (08:49)
[2017-02-28] MEDS: amLODIPine 10 MG TABLET PO SCH (08:49)
[2017-02-28] MEDS: ASPIRIN EC 81 MG TABLET PO SCH (08:49)
--- NOTE | 2017-02-28 11:48 | Cardiology Progress Note ---
<Anny Finney - Last Filed: 02/28/17 11:49> Assessment and Plan (1) Sick sinus syndrome Status: Acute Assessment and plan: See plan of care listed below. Current Visit: Yes (2) Bradycardia Status: Acute Assessment and plan: See plan of care listed below. Current Visit: Yes (3) Congestive heart failure Status: Acute Assessment and plan: See plan of care listed below. Current Visit: Yes Qualifiers: Congestive heart failure type: diastolic Congestive heart failure chronicity: acute Qualified Code(s): I50.31 - Acute diastolic (congestive) heart failure (4) Hypertensive crisis Status: Resolved Assessment and plan: See plan of care listed below. Current Visit: Yes (5) Pre-syncope Status: Resolved Assessment and plan: See plan of care listed below. Current Visit: Yes (6) History of dementia Status: Chronic Assessment and plan: See plan of care listed below. Current Visit: Yes (7) Acute kidney injury Status: Acute Assessment and plan: See plan of care listed below. 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 (Dr. Becerril, new) PCP: Dr. Armando COELHO Ms. Giles is a 86 year old female with PMH including: hypertension and dementia. She denies any history of congestive heart failure. Reports that she has never undergone cardiac evaluation. Denies history of heart catheterization and stress testing. She was admitted to [facility] February 25, 2017 with new onset CHF, hypertensive crisis, bradycardia and presyncope. Cardiology has been consulted to further evaluate patient's bradycardia and new onset congestive heart failure. FEBRUARY 28, 2017 Patient was seen and examined on the telemetry unit. She has done well overnight and is without complaints this morning. She denies chest pain, heaviness and tightness. Reports that her breathing has greatly improved with diuresis. She has lost 2 pounds overnight. Echocardiogram revealed preserved ejection fraction of 55%. Grade 1 diastolic dysfunction. Moderate TR, PAP of 45 mmHg. No pericardial effusion. Holter monitor revealed bradycardia with heart rates as low as 39 along with runs of PAT with heart rates between 120 and 130. This is consistent with sick sinus syndrome and patient will need pacemaker placement this hospitalization. I will discuss with Dr. Becerril and await his additional recommendations. ASSESSMENT/PLAN 1. SICK SINUS SYNDROME - Holter monitor revealed bradycardia with heart rates as low as 39 along with runs of PAT with heart rates between 120 and 130. This is consistent with sick sinus syndrome and patient will need pacemaker placement this hospitalization. 2. NEW ONSET CHF, DIASTOLIC DYSFUNCTION - Now compensated. Secondary to diastolic dysfunction and hypertensive crisis. Echocardiogram revealed preserved ejection fraction of 55%. Grade 1 diastolic dysfunction. Moderate TR , PAP of 45 mmHg. No pericardial effusion. Lasix p.o. she is diuresing well with this, lost 3 pounds overnight. Continue to monitor daily weights and strict I's and O's. 3. HYPERTENSIVE CRISIS - Suspect that this is contributing to her congestive heart failure. Blood pressure 225/74 upon admission. Avoiding beta blockade due to bradycardia. Avoiding LUZ inhibitor and ARB due to fear of worsening renal function. Blood pressure has improved. However, it remains abnormal in control. I will increase patient's hydralazine today. Will continue to monitor blood pressure and adjust medications accordingly. 4. DIZZINESS/PRESYNCOPE - Holter monitor revealed sinus bradycardia, average heart rate 51 with rates as low as 39. Occasional PACs and several runs of PAT at rates 120-130. Rare isolated PVCs. This is consistent with sick sinus syndrome and is most likely contributing to her presyncopal episodes. Patient will need pacemaker placement this hospitalization. 5. HISTORY OF DEMENTIA - Defer management this to attending. 6. ACUTE KIDNEY INJURY - Creatinine 1.7 today. Unknown chronicity. Could be secondary to patient's uncontrolled BP. Will attempt to achieve BP control and avoid neophrotoxic medications. Daily BMP. Will defer to attending. 7. CAROTID ARTERY STENOSIS - Carotid stenosis to the right internal carotid artery greater than 70% noted. Dr. Guevara was consulted. Will follow up with carotid ultrasound in 6 months. Exam (Progress Note) - Constitutional Vitals: Period Temp Pulse Resp BP Sys/Greene Pulse Ox Last 24 Hr 97 F-98.2 F 49-83 18-20 128-196/62-86 94-98 Exam: General: Appears well with no apparent distress. Appears comfortable. Demented. HEENT: PERRL, normocephalic, atraumatic. Mucous membranes moist. No jaundice noted. Conjunctiva moist and clear, sclerae anicteric Neck: No JVD/HJR, no thyromegaly or lymphadenopathy noted. Bilateral carotid bruits. Cardiac: Regular rhythm, bradycardia. No murmur rub or gallop. Lungs: Lungs clear throughout without accessory muscle use to assist the respiratory pattern. Abdomen: Soft, bowel sounds normoactive. Nontender and nondistended. No abdominal bruit or thrill noted. No masses noted. Extremities: No clubbing, cyanosis noted. No edema noted. Capillary refill less than 3 seconds. Skin: No unusual lesions or rashes. No skin breakdown appreciated. Neuro: Awake. Oriented to person. No essential tremor is appreciated. Result/EKG - Labs CBC & BMP: 02/28/17 05:28 02/28/17 05:28 Lab Results: I have reviewed the past 24 hour labs Labs: Laboratory Results - last 24 hr 02/28/17 02/28/17 05:28 05:28 WBC 6.9 RBC 4.07 Hgb 12.6 Hct 37.7 MCV 92.6 MCH 31 MCHC 33.4 RDW 12.6 Plt Count 177 MPV 10.5 Neut % (Auto) 71.4 Lymph % (Auto) 17.2 L Hernando % (Auto) 9.0 Eos % (Auto) 1.6 Baso % (Auto) 0.4 Neut # (Auto) 4.9 Lymph # (Auto) 1.2 L Hernando # (Auto) 0.6 Eos # (Auto) 0.1 Baso # (Auto) 0.0 Immature Gran % 0.4 Nucleated RBC % 0.0 Immature Gran # 0.03 Nucleated RBCs # 0.00 Sodium 141 Potassium 3.8 Chloride 105 Carbon Dioxide 29 Anion Gap 10.8 BUN 36 H Creatinine 1.70 H GFR Calculation 24 BUN/Creatinine Ratio 21.00 H Glucose 105 Calculated Osmolality 288.3 Calcium 8.7 Magnesium 2.4 Specialty Discharge - Follow Up or Referrals Follow up with: Harlan Guevara MD [Physician] - (follow up in 6months with carotid us Appt in recall, office will contact and mail information for appt. spoke with nurse Morin. ) <Piero Becerril - Last Filed: 02/28/17 14:12> Cardiology - PN: Subj Interval history: Cardiology addendumn. Patient examined and chart reviewed. Discussed with nurse Anny Finney RN. 86-year-old woman admitted with presyncope and bradycardia. Holter monitor showed sinus bradycardia with an average heart rate of 51 and several episodes of heart rate 39-44. I have recommended dual-chamber pacemaker. The patient is emotionally distraught at this time. She feels that her children are taking things out of her home and she wants to go home. Very careful. Will return to speak to her later today. Hopefully, she will agree to proceed with dual-chamber pacemaker tomorrow Exam (Progress Note) - Constitutional Vitals: Period Temp Pulse Resp BP Sys/Greene Pulse Ox Last 24 Hr 97 F-98.4 F 49-83 18-20 128-196/67-86 92-98 Result/EKG - Labs CBC & BMP: 02/28/17 05:28 02/28/17 05:28 Labs: Laboratory Results - last 24 hr 02/28/17 02/28/17 05:28 05:28 WBC 6.9 RBC 4.07 Hgb 12.6 Hct 37.7 MCV 92.6 MCH 31 MCHC 33.4 RDW 12.6 Plt Count 177 MPV 10.5 Neut % (Auto) 71.4 Lymph % (Auto) 17.2 L Hernando % (Auto) 9.0 Eos % (Auto) 1.6 Baso % (Auto) 0.4 Neut # (Auto) 4.9 Lymph # (Auto) 1.2 L Hernando # (Auto) 0.6 Eos # (Auto) 0.1 Baso # (Auto) 0.0 Immature Gran % 0.4 Nucleated RBC % 0.0 Immature Gran # 0.03 Nucleated RBCs # 0.00 Sodium 141 Potassium 3.8 Chloride 105 Carbon Dioxide 29 Anion Gap 10.8 BUN 36 H Creatinine 1.70 H GFR Calculation 24 BUN/Creatinine Ratio 21.00 H Glucose 105 Calculated Osmolality 288.3 Calcium 8.7 Magnesium 2.4
[2017-02-28] MEDS: ALPRAZolam 0.5 MG TABLET PO PRN (12:54)
--- NOTE | 2017-02-28 15:37 | Hospitalist Progress Note ---
Assessment and Plan (1) Bradycardia Status: Acute Assessment and plan: Monitor on telemetry. Cardiology following. Echo reviewed. EF 55 %. Grade I/IV diastolic dysfunction (abnormal relaxation filling pattern), normal to mildly elevated filling pressures. Plan for pacemaker placement due to sick sinus syndrome. Current Visit: Yes (2) Congestive heart failure Status: Acute Assessment and plan: Lasix given. echo: EF 55 %. Grade I/IV diastolic dysfunction (abnormal relaxation filling pattern), normal to mildly elevated filling pressures. Current Visit: Yes Qualifiers: Congestive heart failure type: diastolic Congestive heart failure chronicity: acute Qualified Code(s): I50.31 - Acute diastolic (congestive) heart failure (3) Hypertensive crisis Status: Resolved Assessment and plan: Blood pressure medications adjusted. Blood pressure improving. Current Visit: Yes (4) Pre-syncope Status: Resolved Assessment and plan: Right proximal carotid stenosis of greater than 70% ultrasound. Sick sinus syndrome. Pacemaker placement for tomorrow. 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 Surgery consult noted. Continue 81 mg aspirin daily. Follow-up with Dr. Valladares in 6 months with repeat carotid ultrasound. Current Visit: Yes Hospitalist: Subjective Interval history: Patient seen and examined. No acute events overnight. Case discussed with nursing staff. Labs reviewed. Cardiology note reviewed. Patient to be scheduled for pacemaker placement in a.m. for sick sinus syndrome. Exam - Constitutional Vitals: Period Temp Pulse Resp BP Sys/Greene Pulse Ox Last 24 Hr 97 F-98.4 F 49-83 18-20 128-196/67-86 92-98 Exam: Constitutional System: No distress. No tremulousness. Head: Normocephalic, atraumatic. Ears, Nose and Throat System: No pain or tenderness. No epistaxis or discharge Eyes System: Pupils equal, round, and reactive. Extraocular muscles intact. Neck: Supple, without adenopathy, No jugular venous distention. Respiratory System: Chest clear to auscultation. Cardiovascular System: Heart with bradycardia. No murmur. GI System: Abdomen soft, nontender. Normo active bowel sounds present. Musculoskeletal System: limbs with no pedal edema. Full distal pulses. Neurological System: No discernable sensory deficit. No aphasia Psychiatric System: Conversation is rational Results - Labs CBC & BMP: 02/28/17 05:28 02/28/17 05:28 Lab Results: I have reviewed the past 24 hour labs Specialty Discharge - Follow Up or Referrals Follow up with: Harlan Guevara MD [Physician] - (follow up in 6months with carotid us Appt in recall, office will contact and mail information for appt. spoke with nurse Morin. )
--- NOTE | 2017-02-28 20:42 | Event Note ---
I was in the hospital and stopped by to discuss the pacemaker with the patient. I reviewed her records and agree that a pacemaker is indicated and will likely eliminate or improve her symptoms significantly. She is scheduled for a dual-chamber pacemaker tomorrow. I discussed the risks, alternatives, potential benefits with the patient who voices understanding and wishes to proceed.
[2017-03-01] MEDS ORDERED: ceFAZolin 1,000 MG VIAL IRRIG ONE (06:00)
[2017-03-01] MEDS ORDERED: diphenhydrAMINE CAP 25 MG CAPSULE PO ONE (06:00)
[2017-03-01] MEDS ORDERED: DIAZEPAM 5 MG TABLET PO ONE (06:00)
[2017-03-01 06:36] LABS: Basophils % 0.5 % (0.0-0.8); Eosinophils # 0.1 10*3/uL (0.0-0.87); Eosinophils % 2.2 % (0.00-10.9); Hematocrit 40.3 VOL% (35.7-47.0); Hemoglobin 13.4 GM/DL (12.0-16.0); Immature Granulocytes % 0.3 %; Immature Granulocytes Absolute 0.02 #; Lymphocytes # 1.9 10*3/uL (1.4-4.0); Lymphocytes % 31.8 % (21.3-54.2); Mean Corpuscular HGB Conc 33.3 GM/DL (32-36); Mean Corpuscular Hemoglobin 31 PG (27-34); Mean Corpuscular Volume 92.6 FL (87-102); Mean Platelet Volume 10.7 FL (9.6-12.0); Monocytes # 0.6 10*3/uL (0.11-0.8); Monocytes % 10.4 % (1.7-12.7); Neutrophils # 3.2 10*3/uL (1.4-7.4); Neutrophils % 54.8 % (38.7-73.9); Platelet Count 186 T/CUMM (130-400); Red Blood Count 4.35 MC/CUMM (3.8-5.5); Red Cell Distribution Width 12.7 % (9.3-17.3); White Blood Count 5.9 T/CUMM (4-12)
[2017-03-01 06:57] LABS: INR 0.9; PT Patient Result 9.6 SECS; Partial Thromboplastin Time 26.3 SECS (0-40)
[2017-03-01 07:04] LABS: Calcium 8.9 MG/DL (8.5-10.1); Magnesium 2.6 MG/DL (1.8-2.4); Osmolality,Calculated 284.5 MOS/KG (273-304); Potassium 3.9 MMOL/L (3.5-5.1)
--- NOTE | 2017-03-01 07:48 | EKG Report ---
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
[2017-03-01] MEDS ORDERED: LIDOCAINE 1%/EPI INJ 20 ML VIAL ONE (08:46)
[2017-03-01] MEDS ORDERED: ceFAZolin 1,000 MG VIAL ONE (08:47)
[2017-03-01] MEDS: hydrALAZINE 25 MG TABLET PO SCH (09:15)
[2017-03-01] MEDS ORDERED: MIDAZOLAM 2 MG/2 ML VIAL ONE (09:43)
[2017-03-01] MEDS ORDERED: HYDROmorphone 2 MG/1 ML VIAL ONE (09:43)
[2017-03-01] MEDS ORDERED: TISSUE ADHESIVE 1 EACH APPLICATOR TOP ONE (10:06)
--- NOTE | 2017-03-01 10:26 | Cardiac Pacemaker ---
- Preoperative diagnosis Date of Procedure:: 03/01/17 Preoperative Diagnosis: Documented nonreversible symptomatic bradycardia due to , sinus node dysfunction Procedure: Procedures performed 1. Percutaneous left subclavian venotomy with sheath placement 2. Placement of atrial and ventricular leads with threshold testing 3. Placement of dual-chamber permanent (note, this is an MRI compatible pacemaker system) The patient had symptomatic bradycardia due to severe irreversible sinus node dysfunction and needed a dual-chamber pacemaker. After informed consent was obtained was taken to catheter prepped and draped in usual sterile manner. We used minimal sedation for this case. We placed 2 J-tipped wires in the left subclavian vein using a modified Seldinger technique in the usual fashion. With then a pocket approximately 2 cm below the left clavicular border using blunt and sharp dissection as well as electrocautery. We then pulled our leads into the pocket from below. Using safe sheaths, we placed a Medtronic 5076-52 centimeter ventricular lead into the right ventricular apex and secured it with a helical coil. Serial number on the ventricular lead is [id number]. Excellent capture and sensing thresholds were achieved. We then used a Medtronic 5076-45 centimeter lead in the atrium. Serial number on the atrial lead was [id number]. Excellent capture and sensing thresholds were achieved. After the sheaths had been removed, we sutured the leads to the pocket floor using Ethibond suture. We then rinsed the pocket with antibiotic solution and then connected the leads to a Medtronic Advisa DR MRI compatible pacemaker model [id number]. Serial number on the pacemaker is [id number]. After the device give been connected to the leads, it was placed in the pocket and sutured pocket floor with Ethibond suture. We then closed the pocket 2 layers using Vicryl suture. We then applied a topical adhesive followed by Steri-Strips and a dressing. There were no apparent complications during the procedure. The patient remained stable throughout the procedure and will now be transferred back to his room for recovery. Anesthesia: minimal conscious sedation Surgeon / Physician: Sanket Li Condition: stable Disposition: floor - Medications / Follow-up
--- NOTE | 2017-03-01 11:01 | XRay Report ---
History: Lead placement Date: 03/01/2017 Study: Chest x-ray AP portable Comparison exam: February 26, 2017 A left subclavian dual-lead transvenous pacemaker has been placed. The leads are in generally satisfactory position. There is no pneumothorax. There is mild cardiomegaly. Mediastinal contours are unchanged. The pulmonary vasculature is upper normal. The lungs and pleural spaces are clear. Osseous structures are similar. Impression: No evidence of a pneumothorax following pacemaker placement PROCEDURE INTERPRETED AT [facility] DEPARTMENT OF RADIOLOGY Final Report Signed by: Dr. Ida Rowell
--- NOTE | 2017-03-01 11:26 | EKG Report ---
Stationary ECG Study [facility] Test Date: 03/01/2017 11:26 AM Pat Name: MABEL ANDREWS Department: Room: 294 Gender: F Character Actor: : 1930 Requested by: Jw Coles Order Number: [id number] Reading MD: ALCIDES HANNON Intervals [place] Rate: 60 P: 191 RI: 177 QRS: -19 QRSD: 107 T: 97 QT: 484 QTc: 484 Interpretive Statements ELECTRONIC ATRIAL PACEMAKER LEFT VENTRICULAR HYPERTROPHY AND ST-T CHANGE Electronically Signed On 03-03-17 16:41:54 CDT by ALCIDES HANNON [email or web address]
[2017-03-01] MEDS: ASPIRIN EC 81 MG TABLET PO SCH (12:46)
[2017-03-01] MEDS: amLODIPine 10 MG TABLET PO SCH (12:47)
[2017-03-01] MEDS: FUROSEMIDE 40 MG TABLET PO SCH (12:47)
[2017-03-01] MEDS: ALPRAZolam 0.5 MG TABLET PO PRN (14:15)
--- NOTE | 2017-03-01 14:29 | Cardiology Progress Note ---
Cardiology - PN: Subj Interval history: Cardiology note Status post Medtronic ADVISA dual-chamber pacemaker earlier today for sick sinus syndrome with symptomatic bradycardia. Pacer pocket looks good. No temperature telemetry shows Sinus rhythm with rare paced beats Regular rhythm soft systolic murmur as before Decreased breath sounds but clear Abdomen benign. Impression sick sinus syndrome with symptomatic bradycardia Status post Medtronic dual-chamber pacemaker today Dementia Right carotid stenosis being followed by Dr. Valladares EF 55% with grade 1 diastolic dysfunction and moderate TR PA pressure 45 by echo Plan Pacemaker interrogation and chest x-ray in a.m. Monitor Home tomorrow Appreciate Dr. Li's assistance Exam (Progress Note) - Constitutional Vitals: Period Temp Pulse Resp BP Sys/Greene Pulse Ox Last 24 Hr 97.3 F-98.7 F 59-80 14-20 96-198/59-92 93-99 Result/EKG - Labs CBC & BMP: 03/01/17 05:35 03/01/17 05:35 Labs: Laboratory Results - last 24 hr 03/01/17 03/01/17 03/01/17 05:35 05:35 05:35 WBC 5.9 RBC 4.35 Hgb 13.4 Hct 40.3 MCV 92.6 MCH 31 MCHC 33.3 RDW 12.7 Plt Count 186 MPV 10.7 Neut % (Auto) 54.8 Lymph % (Auto) 31.8 Wolfe % (Auto) 10.4 Eos % (Auto) 2.2 Baso % (Auto) 0.5 Neut # (Auto) 3.2 Lymph # (Auto) 1.9 Wolfe # (Auto) 0.6 Eos # (Auto) 0.1 Baso # (Auto) 0.0 Immature Gran % 0.3 Nucleated RBC % 0.0 Immature Gran # 0.02 Nucleated RBCs # 0.00 Immature Plt Fraction 0.0 INR 0.9 PT Patient/Control Mix 9.6 Circ Anticoag PTT 26.3 Sodium 139 Potassium 3.9 Chloride 103 Carbon Dioxide 27 Anion Gap 12.9 BUN 34 H Creatinine 1.70 H GFR Calculation 24 BUN/Creatinine Ratio 20.00 Glucose 100 Calculated Osmolality 284.5 Calcium 8.9 Magnesium 2.6 H Specialty Discharge - Follow Up or Referrals
--- NOTE | 2017-03-01 16:52 | Hospitalist Progress Note ---
Assessment and Plan - Time spent with patient Time spent with patient: Less than 30 minutes (1) Bradycardia Status: Acute Assessment and plan: Patient had pacemaker placed this a.m. Tolerated procedure well. Will continue to monitor rate and pacemaker site. Current Visit: Yes (2) Congestive heart failure Status: Acute Assessment and plan: Continue lasix daily.Will repeat a.m. labs. 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 Current Visit: Yes Hospitalist: Subjective Interval history: 03/01/17 - Ms Giles is back in room after having pacemaker placed, she is sleepy but easily awakened. She denies any chest pain, shortness of breath or pain at present. Exam - Constitutional Vitals: Period Temp Pulse Resp BP Sys/Greene Pulse Ox Last 24 Hr 97.3 F-98.7 F 59-80 14-20 96-198/55-92 93-99 General appearance: normal weight - Head Head exam: Present: normal inspection - Eye Eye exam: Present: EOMI Pupils: Present: SANTINO - Respiratory Respiratory exam: Present: clear to auscultation bilaterally - Cardiovascular Cardiovascular exam: Present: regular rate and rhythm - GI/Abdominal GI/Abdominal exam: Present: normal bowel sounds, soft. Absent: tenderness, rebound - Neurological Exam Neurological exam: Present: alert, oriented X3 - Psychiatric Psychiatric exam: Present: normal affect, normal mood - Skin Skin exam: Present: normal color, warm, dry Results - Labs CBC & BMP: 03/01/17 05:35 03/01/17 05:35 Lab Results: I have reviewed the past 24 hour labs Specialty Discharge - Follow Up or Referrals
[2017-03-02 06:02] LABS: Basophils % 0.5 % (0.0-0.8); Eosinophils # 0.1 10*3/uL (0.0-0.87); Eosinophils % 1.7 % (0.00-10.9); Hematocrit 36.1 VOL% (35.7-47.0); Hemoglobin 11.9 GM/DL (12.0-16.0); Immature Granulocytes % 0.2 %; Immature Granulocytes Absolute 0.01 #; Lymphocytes # 1.1 10*3/uL (1.4-4.0); Lymphocytes % 17.8 % (21.3-54.2); Mean Corpuscular Hemoglobin 31 PG (27-34); Mean Platelet Volume 11.1 FL (9.6-12.0); Monocytes # 0.5 10*3/uL (0.11-0.8); Monocytes % 8.2 % (1.7-12.7); Neutrophils # 4.5 10*3/uL (1.4-7.4); Neutrophils % 71.6 % (38.7-73.9); Platelet Count 167 T/CUMM (130-400); Red Blood Count 3.84 MC/CUMM (3.8-5.5); Red Cell Distribution Width 12.7 % (9.3-17.3); White Blood Count 6.3 T/CUMM (4-12)
[2017-03-02 06:36] LABS: Calcium 8.6 MG/DL (8.5-10.1); Magnesium 2.4 MG/DL (1.8-2.4); Osmolality,Calculated 287.4 MOS/KG (273-304); Potassium 3.7 MMOL/L (3.5-5.1)
--- NOTE | 2017-03-02 08:05 | EKG Report ---
Stationary ECG Study [facility] Test Date: 03/02/2017 8:04:33 AM Pat Name: MABEL ANDREWS Department: Room: 294 Gender: F Dependency Case Manager: SABI : 1930 Requested by: Jw Coles Order Number: [id number] Reading MD: ALCIDES HANNON Intervals [place] Rate: 60 P: 161 SC: 164 QRS: -23 QRSD: 100 T: 48 QT: 466 QTc: 467 Interpretive Statements ELECTRONIC ATRIAL PACEMAKER BORDERLINE LEFT AXIS DEVIATION VOLTAGE CRITERIA FOR LVH PROLONGED QT INTERVAL Electronically Signed On 03-03-17 16:59:06 CDT by ALCIDES HANNON [email or web address]
[2017-03-02 08:29] VITALS: BP 152/59
[2017-03-02] MEDS: amLODIPine 10 MG TABLET PO SCH (08:54)
[2017-03-02] MEDS: FUROSEMIDE 40 MG TABLET PO SCH (08:54)
[2017-03-02] MEDS: ASPIRIN EC 81 MG TABLET PO SCH (08:55)
--- NOTE | 2017-03-02 09:04 | XRay Report ---
XR chest 2V Indication: Lead placement. Comparison: Chest x-ray 03/01/2017. Technique: PA and lateral chest x-ray was performed. Findings: Pacemaker lead terminations are stable compared to prior study. Pacemaker generator is stable in position. Lungs are clear. Heart size is normal. Bones and soft tissues are unremarkable. Impression: 1. Stable appearance of the chest. 03/02/2017 9:01 AM PROCEDURE INTERPRETED AT [facility] DEPARTMENT OF RADIOLOGY Final Report Signed by: Dr. David Hanna
--- NOTE | 2017-03-02 10:12 | Discharge Summary ---
Hospital Course - Hospital Course Hospital Course: Ms. Giles is a 89-year-old white female who presented with dizziness while cleaning her house. EMS was called and noted brief episodes of bradycardia with heart rate in the 40s. She was evaluated in the emergency room and noted to be hypertensive and was treated with hydralazine. She was also noted to have a component of congestive heart failure. Carotid Doppler revealed stenosis of proximal right internal carotid artery greater than 70%. Echocardiogram noted an ejection fraction of 55% with grade 1/4 diastolic dysfunction with normal to mildly elevated filling pressures. MRI of the brain revealed no evidence of acute findings. There was moderate diffuse cerebral atrophy. There are some changes consistent with chronic microvascular changes. Dr. Guevara saw Ms. Giles in consultation for her carotid stenoses and after discussion he felt it would be reasonable to follow-up with ultrasound in 6 months. She was seen by cardiology as well and it was ultimately felt that she had nonreversible symptomatic bradycardia due to sinus node dysfunction and underwent placement of MRI compatible dual-chamber permanent pacemaker on . She is doing well today without any complaints. She is hemodynamically stable and otherwise asymptomatic and is felt that she can be discharged home with outpatient follow-up. Time required counseling patient, preparing discharge medications and summary was approximately 45 minutes. 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 (2) Sick sinus syndrome Status: Acute Specialty Discharge - Follow Up or Referrals Discharge Plan - Discharge Data Disposition: Disch To Home/Self Care Condition at Discharge: Stable Discharge Diet: heart healthy Activity: other (Activity and sling instructions per cardiology.) - Discharge Medications New amLODIPine [Norvasc] 10 mg PO DAILY #30 tablet Aspirin EC Tab 81 mg PO DAILY #30 tablet Furosemide Tab [Lasix Tab] 40 mg PO DAILY #30 tablet Potassium Chloride Cap/Tab [K Dur] 20 meq PO DAILY #30 tablet hydrALAZINE TAB [Apresoline Tab] 100 mg PO TID #90 tablet No Action Lisinopril [Zestril] 5 mg PO DAILY - Follow Up or Referral Follow Up: Armando Augustine DO [Physician] - 1 Week (Patient will need follow-up carotid ultrasound in 6 months) - Forms/Instructions Instructions: Hypertension (ED), Dizziness (ED) Additional Discharge Instructions: Patient is to follow-up with Dr. Li at the [facility] in 1 week. The clinic will call and arrange for this appointment. Exam - Constitutional Vitals: Period Temp Pulse Resp BP Sys/Greene Pulse Ox Last 24 Hr 97.3 F-98 F 59-64 14-20 96-188/55-92 92-97 General appearance: no acute distress - Head Head exam: Present: normocephalic, atraumatic - Eye Eye exam: Present: EOMI Pupils: Present: SANTINO - ENT ENT exam: Present: normal exam - Neck Neck exam: Present: normal inspection - Respiratory Respiratory exam: Present: clear to auscultation bilaterally. Absent: rales, rhonchi, wheezes - Cardiovascular Cardiovascular exam: Present: regular rate and rhythm - GI/Abdominal GI/Abdominal exam: Present: soft. Absent: mass, tenderness, rebound - Extremities Exam Extremities exam: Absent: calf tenderness, edema - Back Exam Back exam: Present: normal inspection - Neurological Exam Neurological exam: Present: alert, oriented X3, CN II-XII intact. Absent: motor sensory deficit - Psychiatric Psychiatric exam: Present: normal affect, normal mood - Skin Skin exam: Present: warm, dry. Absent: erythema Discharge Results Procedures and tests throughout hospitalization: Pending Orders 03/01/17 07:34 CL pacemaker Routine 03/03/17 04:00 BMP w/ Mg [Basic Metabolic Panel w/Mg] IN AM Comp Blood Count Auto Diff IN AM 03/04/17 04:00 BMP w/ Mg [Basic Metabolic Panel w/Mg] IN AM Comp Blood Count Auto Diff IN AM Labs on day of discharge: Labs from last 24 hours 03/02/17 03/02/17 04:08 04:08 WBC 6.3 RBC 3.84 Hgb 11.9 L Hct 36.1 MCV 94.0 MCH 31 MCHC 33.0 RDW 12.7 Plt Count 167 MPV 11.1 Neut % (Auto) 71.6 Lymph % (Auto) 17.8 L [place] % (Auto) 8.2 Eos % (Auto) 1.7 Baso % (Auto) 0.5 Neut # (Auto) 4.5 Lymph # (Auto) 1.1 L [place] # (Auto) 0.5 Eos # (Auto) 0.1 Baso # (Auto) 0.0 Immature Gran % 0.2 Nucleated RBC % 0.0 Immature Gran # 0.01 Nucleated RBCs # 0.00 Immature Plt Fraction 0.0 Sodium 140 Potassium 3.7 Chloride 102 Carbon Dioxide 29 Anion Gap 12.7 BUN 38 H Creatinine 1.90 H GFR Calculation 21 BUN/Creatinine Ratio 20.00 Glucose 103 Calculated Osmolality 287.4 Calcium 8.6 Magnesium 2.4 - Imaging and Cardiology Procedure: Chest x-ray: report reviewed by me DS: Provider Date of admission: 02/25/17 22:29 Primary care physician: Clive Ward MD Attending physician on admission: Clive Ward MD Consults: 02/25/17 22:34 Consult to Physician [CONS] Routine Comment: new onset CHF and bradycardia Consulting Provider: Piero Becerril When should Consulting Provider be notified: In am Person Notified: Tara Date Notified: 02/26/17 Time Notified: 07:30 02/26/17 09:22 Consult to Case Mgmt/Social Srvs [CONS] Routine Reason for Case Mgmt/Social Srvs: Discharge Planning Consult Comment: pt has dementia, family wants to know poss placement options 02/27/17 11:45 Consult to Physician [CONS] Routine Comment: R-ICA stenosis Consulting Provider: Harlan Guevara Discharging clinician: Castillo Roberts Expected date of discharge: 03/02/17
--- NOTE | 2017-03-02 10:56 | Cardiology Progress Note ---
Cardiology - PN: Subj Interval history: Cardiology note Day 1 status post [employer] Advisa dual-chamber pacemaker for sick sinus syndrome with symptomatic bradycardia No temperature. Pacer pocket looks good. Small ecchymotic bruise only. Telemetry shows sinus rhythm with normal sensing and occasional ventricular pacing. Chest x-ray shows normal heart size good lead position and no pneumothorax. Pacemaker interrogation demonstrates good thresholds Plan Discharge today Pacemaker interrogation/follow-up with Dr. Li in 1 week Office visit with EKG with me in 2 weeks Exam (Progress Note) - Constitutional Vitals: Period Temp Pulse Resp BP Sys/Greene Pulse Ox Last 24 Hr 97.3 F-98 F 59-61 14-20 96-170/55-92 92-97 Result/EKG - Labs CBC & BMP: 03/02/17 04:08 03/02/17 04:08 Labs: Laboratory Results - last 24 hr 03/02/17 03/02/17 04:08 04:08 WBC 6.3 RBC 3.84 Hgb 11.9 L Hct 36.1 MCV 94.0 MCH 31 MCHC 33.0 RDW 12.7 Plt Count 167 MPV 11.1 Neut % (Auto) 71.6 Lymph % (Auto) 17.[address] [place] % (Auto) 8.2 Eos % (Auto) 1.7 Baso % (Auto) 0.5 Neut # (Auto) 4.5 Lymph # (Auto) 1.[address] # (Auto) 0.5 Eos # (Auto) 0.1 Baso # (Auto) 0.0 Immature Gran % 0.2 Nucleated RBC % 0.0 Immature Gran # 0.01 Nucleated RBCs # 0.00 Immature Plt Fraction 0.0 Sodium 140 Potassium 3.7 Chloride 102 Carbon Dioxide 29 Anion Gap 12.7 BUN 38 H Creatinine 1.90 H GFR Calculation 21 BUN/Creatinine Ratio 20.00 Glucose 103 Calculated Osmolality 287.4 Calcium 8.6 Magnesium 2.4 Specialty Discharge - Follow Up or Referrals Follow up with: Armando Augustine DO [Physician] - 1 Week (Patient will need follow-up carotid ultrasound in 6 months)
== END 2017-03-02 15:18 | disposition home or self-care (01) | DRG 242 ==
LOC: EDUNIT# → EDBD → N.ED 18:14 → N.EDINP 22:29 → SUATTDRO 22:29 → N.TELEN 22:52
PROVIDERS: ADMIT Internal Medicine; ATTEND Hospitalist

== ENCOUNTER 2017-03-25 08:20 | Inpatient (IN) ==
--- NOTE | 2017-03-25 09:24 | EKG Report ---
Stationary ECG Study [facility] ER Test Date: 03/25/2017 8:47:35 AM Pat Name: MABEL ANDREWS Department: Room: Gender: F Conditioning Coach: : 1930 Requested by: Nic Urbano Order Number: [id number] Reading MD: JUAN RODRIGUEZ Intervals [place] Rate: 59 P: 241 MT: 178 QRS: 10 QRSD: 121 T: 29 QT: 488 QTc: 488 Interpretive Statements ELECTRONIC ATRIAL PACEMAKER MODERATE INTRAVENTRICULAR CONDUCTION DELAY MODERATE VOLTAGE CRITERIA FOR LVH, CONSIDER NORMAL VARIANT NONSPECIFIC T-WAVE ABNORMALITY PROLONGED QT INTERVAL Electronically Signed On 03-25-17 15:48:27 CDT by JUAN RODRIGUEZ [email or web address]
[2017-03-25] MEDS ORDERED: SODIUM CHLORIDE 0.9% 1,000 ML IV STA (09:49)
--- NOTE | 2017-03-25 10:10 | Emergency Department Note ---
Sukhwinder Ford Brooke, am scribing for, and in the presence of, Nic Rodriguez MD 09 :59. Michael Ford Charles R, MD, personally performed the services described in this documentation, ascribed by Mora Pretty in my presence, and it is both accurate and complete . Arrival - Arrival Chief Complaint: Weakness Stated Complaint: weakness, dizzy ED Nursing Triage Note: patient to room via ems with c/o weakness and dizziness since late last night or early this morning. Patient also states that she has tremors that she can not get rid of. Mode of Arrival: Stretcher Limitations: No Limitations Source: Patient, EMS, RN Notes Reviewed Time Seen by Provider: 03/25/17 09:21 - History of Present Illness HPI Narrative: Patient is a 86 year old female brought into the ED by EMS, from [facility] , with c/o weakness and dizziness. She is a poor historian. Patient says she does not know why she is here and says she thinks she "almost passed out." Patient is confused and not oriented to place or time. Patient says she does not know who called EMS. She has PMHx of HTN and says she does take blood pressure medications. Allergies/Adverse Reactions: Allergies Allergy/AdvReac Type Severity Reaction Status Date / Time No Known Allergies Allergy Unverified 03/25/17 08:28 Home Medications: Home Medications Medication Instructions Recorded Confirmed Type Aspirin EC Tab 81 mg PO DAILY #30 tablet 03/02/17 Rx Furosemide Tab [Lasix Tab] 40 mg PO DAILY #30 tablet 03/02/17 Rx Potassium Chloride Cap/Tab [K Dur] 20 meq PO DAILY #30 tablet 03/02/17 Rx amLODIPine [Norvasc] 10 mg PO DAILY #30 tablet 03/02/17 Rx hydrALAZINE TAB [Apresoline Tab] 100 mg PO TID #90 tablet 03/02/17 Rx Review of System - Review of System ROS unobtainable: due to mental status - Review of System Constitutional: Absent: fever Respiratory: Absent: respiratory distress Skin: Absent: rash Neurological: Present: weakness (generalized), confusion, other (dizziness) Medical,Surgical,& Family Hx - Medical History Cardio: History of: Hypertension Musculoskeletal: No history of: Amputation - Surgical History Cardiac Surgeries: Patient Denies: Cardiac Catheterization Thoracic Surgeries: Patient denies;: Organ Transplant, Lobectomy Neurologic Surgeries: Patient denies: Neurologic Surgery Reproductive Surgeries: Surgical HX of;: Gynecologic Surgery Patient denies;: Genitourinary Surgery - Family History Family History: Denies;: Family Heart Disease - Social History Smoking Status: Never smoker Frequency of Alcohol Use: None Type of Drug Use: None Exam Vital Signs: Vital Signs Temperature 97.0 F L 03/25/17 10:34 Pulse Rate 60 03/25/17 12:54 Respiratory Rate 18 03/25/17 12:54 Blood Pressure 149/69 03/25/17 12:54 O2 Sat by Pulse Oximetry 96 03/25/17 12:54 - General General appearance: alert, in no apparent distress, other (Poor hygiene- has an odor.) - Head Head exam: Present: atraumatic, normocephalic - Eye Eye exam: Present: normal appearance, PERRL, EOMI - ENT ENT exam: Present: normal exam - Neck Neck exam: Present: normal inspection - Chest Chest inspection: Present: normal inspection, symmetric chest wall rise - Respiratory Respiratory exam: Present: normal lung sounds bilaterally - Cardiovascular Cardiovascular exam: Present: regular rate, normal rhythm, normal heart sounds - Abdominal Exam Abdominal exam: Present: soft, normal bowel sounds. Absent: distention, tenderness - Extremities Exam Extremities exam: Present: other (weakness to the upper and lower extremities but it is equal.) - Neurological Exam Neurological exam: Present: alert, CN II-XII intact, other (no neuro deficits but confused and can't remember anything). Absent: oriented X3 - Psychiatric Psychiatric exam: Present: normal affect, normal mood - Skin Skin exam: Present: warm, dry, intact, normal color, other (poor skin turgor) Course - Consultations Consultation #1: Hospitalist admit patient Time: 11:54 Results - Labs CBC & BMP: 03/25/17 10:33 03/25/17 10:33 Lab Results: I have reviewed the patients labs Labs: Laboratory Tests 03/25/17 03/25/17 03/25/17 09:42 10:33 10:33 WBC 4.7 RBC 3.99 Hgb 12.6 Hct 36.5 MCV 91.5 MCH 32 MCHC 34.5 RDW 12.1 Plt Count 165 MPV 10.0 Neut % (Auto) 76.9 H Lymph % (Auto) 15.4 L [place] % (Auto) 5.8 Eos % (Auto) 1.3 Baso % (Auto) 0.4 Neut # (Auto) 3.6 Lymph # (Auto) 0.7 L [place] # (Auto) 0.3 Eos # (Auto) 0.1 Baso # (Auto) 0.0 Immature Gran % 0.2 Nucleated RBC % 0.0 Immature Gran # 0.01 Nucleated RBCs # 0.00 Immature Plt Fraction 0.0 Lactic Acid Ammonia 28 Urine Color Yellow Urine Appearance Clear Urine pH 6.0 Ur Specific [place] 1.009 Urine Protein 30 Urine Glucose (UA) Negative Urine Ketones 5 Urine Blood Negative Urine Nitrate Negative Urine Bilirubin Negative Urine Urobilinogen < 2.0 H Urine Leukocytes Negative Urine RBC 1 Urine WBC 1 Urine Mucus Occasional Ur Culture Indicated? Not indicated 03/25/17 10:33 WBC RBC Hgb Hct MCV MCH MCHC RDW Plt Count MPV Neut % (Auto) Lymph % (Auto) [place] % (Auto) Eos % (Auto) Baso % (Auto) Neut # (Auto) Lymph # (Auto) [place] # (Auto) Eos # (Auto) Baso # (Auto) Immature Gran % Nucleated RBC % Immature Gran # Nucleated RBCs # Immature Plt Fraction Lactic Acid 0.7 Ammonia Urine Color Urine Appearance Urine pH Ur Specific [place] Urine Protein Urine Glucose (UA) Urine Ketones Urine Blood Urine Nitrate Urine Bilirubin Urine Urobilinogen Urine Leukocytes Urine RBC Urine WBC Urine Mucus Ur Culture Indicated? Laboratory Tests 03/25/17 10:33 Free T4 1.00 Laboratory Tests 03/25/17 03/25/17 10:33 10:33 Sodium 140 Potassium 3.5 Chloride 105 Carbon Dioxide 26 Anion Gap 12.5 BUN 23 H Creatinine 1.50 H GFR Calculation 29 BUN/Creatinine Ratio 15.00 Glucose 105 Calculated Osmolality 282.4 Calcium 9.5 Magnesium 2.4 Total Bilirubin 0.50 AST 21 ALT 15 Alkaline Phosphatase 58 Troponin I < 0.015 Total Protein 7.2 Albumin 4.0 Globulin 3.2 Albumin/Globulin Ratio 1.2 TSH 3rd Generation 0.999 Prolactin 14.7 Serum Alcohol < 15 L - Diagnostic Findings Procedure: Chest x-ray: report reviewed by me (Some parenchymal scarring is present. No acute cardiopulmonary process is seen.), CT: report reviewed by me ( CT head/brain wo con: No acute abnormality.) Disposition Clinical Impression: History of dementia, Confusion, Generalized weakness Disposition: Still a Patient Condition: Stable Time of Disposition: 13:08
--- NOTE | 2017-03-25 10:16 | CT Report ---
CT of the head without contrast. Indication: Mental status changes. Comparison: February 25, 2017. There is calcific plaque present within the intracranial internal carotid arteries and vertebral arteries. 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 There is generalized prominence of the ventricles and sulci consistent with atrophy of aging. There is no mass effect or midline shift. There is no evidence of acute hemorrhage. There are mild findings of chronic microvascular ischemia in the periventricular white matter. Impression: No acute abnormality. The CT exam was performed using one or more of the following dose reduction techniques: Automated exposure control, adjustment of the mA and/or kV according to patient size, or use of iterative reconstruction technique. PROCEDURE INTERPRETED AT [facility] DEPARTMENT OF RADIOLOGY Final Report Signed by: Dr. Anny Brown
--- NOTE | 2017-03-25 10:29 | XRay Report ---
Portable chest. Indication: Altered mental status. Comparison: March 02, 2017. The heart is normal in size. There is calcific plaque present within the aortic knob. Cardiac hardware is in satisfactory position. Calcified granulomas are noted within the lung parenchyma. Mild stable scarring at the left lung base. Degenerative changes of the spinal column and shoulders. Apical pleural irregularity, stable. Impression: Some parenchymal scarring is present. No acute cardiopulmonary process is seen. PROCEDURE INTERPRETED AT [facility] DEPARTMENT OF RADIOLOGY Final Report Signed by: Dr. Anny Brown
[2017-03-25 10:45] LABS: Basophils % 0.4 % (0.0-0.8); Eosinophils # 0.1 10*3/uL (0.0-0.87); Eosinophils % 1.3 % (0.00-10.9); Hematocrit 36.5 VOL% (35.7-47.0); Hemoglobin 12.6 GM/DL (12.0-16.0); Immature Granulocytes % 0.2 %; Immature Granulocytes Absolute 0.01 #; Lymphocytes # 0.7 10*3/uL (1.4-4.0); Lymphocytes % 15.4 % (21.3-54.2); Mean Corpuscular HGB Conc 34.5 GM/DL (32-36); Mean Corpuscular Hemoglobin 32 PG (27-34); Mean Corpuscular Volume 91.5 FL (87-102); Monocytes # 0.3 10*3/uL (0.11-0.8); Monocytes % 5.8 % (1.7-12.7); Neutrophils # 3.6 10*3/uL (1.4-7.4); Neutrophils % 76.9 % (38.7-73.9); Platelet Count 165 T/CUMM (130-400); Red Blood Count 3.99 MC/CUMM (3.8-5.5); Red Cell Distribution Width 12.1 % (9.3-17.3); White Blood Count 4.7 T/CUMM (4-12)
[2017-03-25 10:50] LABS: Apearance,Urine CLEAR (Clear); Bilirubin,Urine Negative (Negative); Blood, Urine Negative (Negative); Glucose,Urine (UA) Negative (Negative); Ketones,Urine 5 mg/dL (Negative); Mucus,Urine Occasional /LPF (Occasional); Nitrite,Urine Negative (Negative); Protein,Urine 30 MG/DL; RBC,Urine 1 /HPF (0-4); Urine Color Yellow (Yellow); Urine Specific Gravity 1.009 (1.001-1.035); Urine Urobilinogen < 2.0 EU/DL (0.2-1.0); WBC,Urine 1 /HPF (0-6)
[2017-03-25 11:01] LABS: Ammonia 28 UMOL/L (11-32)
[2017-03-25 11:33] LABS: Alanine Aminotransferase 15 U/L (13-56); Alkaline Phosphatase 58 U/L (45-117); Aspartate Amino Transferase 21 U/L (0-37); Blood Urea Nitrogen 23 MG/DL (7-18); Calcium 9.5 MG/DL (8.5-10.1); Glucose 105 MG/DL (74-106); Magnesium 2.4 MG/DL (1.8-2.4); Osmolality,Calculated 282.4 MOS/KG (273-304); Potassium 3.5 MMOL/L (3.5-5.1); Sodium 140 MMOL/L (136-145); Thyroid Stimulating Hormone 0.999 uIU/ml (0.358-3.74); Total Protein 7.2 G/DL (6.4-8.3); Troponin I Only < 0.015 NG/ML (0.00-0.045)
[2017-03-25] MEDS ORDERED: ceFAZolin 1,000 MG VIAL ONE (11:57)
[2017-03-25] MEDS ORDERED: SODIUM CHLORIDE 0.9% 100 ML IV ONE (11:57)
--- NOTE | 2017-03-25 12:42 | Hospitalist History & Physical ---
Assessment and Plan (1) Sick sinus syndrome Status: Acute Assessment and plan: Impression: 1. Sick sinus syndrome with recent pacemaker 2. Dizziness, possibly related to #1 3. Hypertension 4. Baseline dementia, likely Alzheimer's type Plan: She needs her pacemaker interrogated, so we will ask cardiology for their assistance. It does not appear to me that she is safe to live at home alone. She may end up being a disposition problem if we cannot get her some help. This note was completed using op5 voice recognition software. There may be all source collection manager errors as a result. Current Visit: No History of Present Illness Chief complaint: Dizzy and almost passed out History of present illness: Ms. Giles is a 86 year old female She presents to the hospital after she says that she was getting ready to go to shelter, and almost passed out. She says that she felt funny, and does not remember much else. She was here last month for a similar event, and apparently was found to have symptomatic bradycardia. She underwent implantation of a dual-chamber pacemaker. She does not recall exactly when she had the pacemaker. She says that she has had some "heart problems" in the past , but really could not describe what is going on. She appears to be demented, and ask the same question several times. She had an echocardiogram that showed some diastolic dysfunction with a normal ejection fraction. She had a carotid ultrasound that showed a 70% stenosis on the right that is apparently asymptomatic. She says that she lives alone. She takes the bus to the shelter program that she visits. She says that she has been going to that particular service for about 2 years now She denies any chest discomfort or dyspnea. She says that she feels like she might pass out. She denies any vertigo. She denies any symptoms at this time. Home Medications Medication Instructions Recorded Confirmed Type Aspirin EC Tab 81 mg PO DAILY #30 tablet 03/02/17 Rx Furosemide Tab [Lasix Tab] 40 mg PO DAILY #30 tablet 03/02/17 Rx Potassium Chloride Cap/Tab [K Dur] 20 meq PO DAILY #30 tablet 03/02/17 Rx amLODIPine [Norvasc] 10 mg PO DAILY #30 tablet 03/02/17 Rx hydrALAZINE TAB [Apresoline Tab] 100 mg PO TID #90 tablet 03/02/17 Rx Allergies Allergy/AdvReac Type Severity Reaction Status Date / Time No Known Allergies Allergy Unverified 03/25/17 08:28 Medical,Surgical,& Family Hx - Medical History Cardio: History of: Hypertension, Pacemaker Musculoskeletal: No history of: Amputation - Surgical History Cardiac Surgeries: Patient Denies: Cardiac Catheterization Thoracic Surgeries: Patient denies;: Organ Transplant, Lobectomy Neurologic Surgeries: Patient denies: Neurologic Surgery Reproductive Surgeries: Surgical HX of;: Breast Surgery (Breast biopsy), Gynecologic Surgery, Hysterectomy Patient denies;: Genitourinary Surgery - Family History Family History: Denies;: Family Heart Disease - Social History Smoking Status: Never smoker Frequency of Alcohol Use: None Type of Drug Use: None Lives With:: Alone Review of systems: Reliability is questionable, as she seems to have some baseline dementia. Gen.: No weight loss or gain over the past year. Eyes: No glaucoma or cataracts. No change in visual acuity. Ears nose and throat: No change in auditory acuity, sinus problems, nasal allergies, or sore throat. Lungs: No asthma, bronchitis, or pneumonia. Cardiac: No chest pain, myocardial infarction, heart failure, stroke, murmur, or rheumatic fever. See history of present illness GI: No liver disease, nausea, vomiting, or diarrhea. : No hematuria, UTI, or stones. Neurologic: No seizures. Endocrine: No thyroid disease. Hematologic: No anemia or blood dyscrasias. Skin: No rashes or lesions. Musculoskeletal: No significant arthritic complaints. Exam - Constitutional Vitals: Period Temp Pulse Resp BP Sys/Greene Pulse Ox Last 24 Hr 97.0 F-97.0 F 70-70 18-18 100-100/70-70 99-100 General: She is a pleasant white lady in no distress. HEENT: Pupils are round and reactive. Extraocular muscles are normal. Gaze is conjugate. Fundi were not examined. There is no nasal discharge. Mucous membranes are moist. Neck: Supple, without mass or venous distention. She has bilateral carotid bruits louder on the right. Cardiac: Rhythm is regular. The carotids are normal. She has a 2/6 systolic ejection murmur. Peripheral pulses are intact. Lungs: Clear without rales, wheezes, or rubs. Abdomen: Soft and nontender. Bowel sounds are present. No mass palpable. Rectal: Not done. Extremities: No cyanosis, clubbing, or edema. Skin: No significant rash or lesion. Neurologic: She is awake and conversant, but appears confused. She knows her birthday, but does not know her age. She does not know where she is at this time. She moves all 4 extremities. Cranial nerves appear to be intact. No pathologic reflexes are elicited. Results - Labs CBC & BMP: 03/25/17 10:33 03/25/17 10:33
[2017-03-25] MEDS ORDERED: ACETAMINOPHEN 325 MG TABLET PO PRN (12:47)
[2017-03-25] MEDS: ENOXAPARIN 30 MG/0.3 ML SYRINGE SUBCUT SCH (14:58)
--- NOTE | 2017-03-25 15:03 | Cardiology Consult Note ---
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 CONRAD Ms. Giles, 86WF, with no known history of CAD but risk factors significant for: Advanced age, hypertension, sedentary lifestyle, PVD. History of dementia. History of symptomatic bradycardia for which underwent dual-chamber pacemaker implantation March 01, 2017. Tolerated the procedure well without complication was discharged home in stable condition. She did not return for her one-week follow-up for pacemaker interrogation nor has she been seen in [facility]. February 26, 2017 echocardiogram: EF 55%, diastolic dysfunction and no significant valvular abnormality, PAP 45 mmHg Patient is a poor historian, there is no family at the bedside. The majority of this information is taken from medical records and staff. Patient reports yesterday, she awakened feeling fine then, as the day progressed, she began to feel odd. She cannot further elaborate what she was feeling. She believes she may have been dizzy but she is not certain. She cannot remember her mode of transportation to the hospital. She states she lives alone and is usually very active, taking care of her 2 new puppies. She has a son who lives approximately 2 miles away from her home and a daughter in [facility]. She states her neighbors make sure she is well taken care of. Patient believes she got up and took her medications then, sometime later in the day, she began to feel unusual. On arrival, patient's blood pressure was noted to be 100/70, heart rate 70. As the day has progressed and through this hospital stay, her blood pressure has increased and is actually suboptimally controlled at this time with blood pressure being 187/78. Denies chest pain, heaviness, tightness or shortness of breath. EKG reveals pacemaker pattern. Of note, Dr. Guevara follows her for right internal carotid stenosis (carotid ultrasound revealed LAILA stenosis greater than 70%) and saw her during the last visit. She is scheduled for right carotid ultrasound in [address] head revealed no significant abnormality. ASSESSMENT/PLAN: 1. DIZZINESS -patient was initially admitted last admission with symptomatic bradycardia. She was dizzy at that time. She states she did well post pacemaker implantation but began to feel unusual yesterday. Again, the patient is pleasantly demented recounting several different stories of the incident but no good history is revealed by patient. I query as to whether she was taking her medications inappropriately causing hypotension. Her blood pressure medications have been held since admission and now she is experiencing significant hypertension. Pacemaker appears to be functioning appropriately according to EKG. However, she did miss her one-week follow-up appointment for interrogation of the device. I have discussed with Kolby Kaplan, [employer] membership sales representative,. Kolby will interrogate the device tomorrow morning. I suspect it is functioning appropriately and not related to her dizziness/presyncope. 2. HYPOTENSION - on arrival, patient was hypotensive. Now blood pressures rebounded since antihypertensives have been held 3. S/P PPM IMPLANTATION - device to be interrogated tomorrow morning. Pocket has healed nicely. 4. DEMENTIA - unfortunately, it appears that Ms. Giles has had dementia which could possibly be now contributing to her health. Him afraid she may not be taking her medications as prescribed as she did appear to be significantly hypotensive on arrival. Long-term living plans should be addressed with her family and I will defer to her attending for this. I will check blood cultures 2. UA reveals no infection. Chest x-ray stable. 5. HYPERTENSION - at home, patient has been taking Amlodipine 10 mg and Hydralazine 100mg times daily. Now that patient has a pacemaker, I will stop ( not resume) Hydralazine and start Betablocker. Hopefully, this will allow for easier compliance (rather than taking Hydralazine 3 times a day will prescribe Metoprolol Succinate to take once daily). CC: Bob Ernst MD - Home Medications and Allergies Home Medications: Home Medications Medication Instructions Recorded Confirmed Type Aspirin EC Tab 81 mg PO DAILY 03/25/17 03/25/17 History Furosemide Tab [Lasix Tab] 40 mg PO DAILY 03/25/17 03/25/17 History Potassium Chloride Cap/Tab [K Dur] 20 meq PO DAILY 03/25/17 03/25/17 History amLODIPine [Norvasc] 10 mg PO DAILY 03/25/17 03/25/17 History hydrALAZINE TAB [Apresoline Tab] 100 mg PO TID 03/25/17 03/25/17 History Allergies/Adverse Reactions: Allergies Allergy/AdvReac Type Severity Reaction Status Date / Time No Known Allergies Allergy Unverified 03/25/17 08:28 ROS unobtainable: due to dementia Medical,Surgical,& Family Hx - Medical History Cardio: History of: Cardiac Dysrhythmia, Hypertension, Pacemaker Musculoskeletal: No history of: Amputation - Surgical History Cardiac Surgeries: Patient Denies: Cardiac Catheterization Thoracic Surgeries: Patient denies;: Organ Transplant, Lobectomy Neurologic Surgeries: Patient denies: Neurologic Surgery Reproductive Surgeries: Surgical HX of;: Breast Surgery (Breast biopsy), Gynecologic Surgery, Hysterectomy Patient denies;: Genitourinary Surgery - Family History Family History: Denies;: Family Heart Disease - Social History Smoking Status: Never smoker Have you smoked in the last 12 months: No Frequency of Alcohol Use: None Type of Drug Use: None Marital Status: Lives With:: Alone Functional capacity: independent ambulation Physical Examination Vital Signs Temp Pulse Resp BP Pulse Ox 97.0 F L 70 18 100/70 99 03/25/17 08:20 03/25/17 08:20 03/25/17 08:20 03/25/17 08:20 03/25/17 08:20 Exam: General: [Appears well with no apparent distress.] [Pleasant and cooperative. ] [Appears comfortable.] HEENT: [PERRL, normocephalic, atraumatic. Mucous membranes moist. No jaundice noted. Conjunctiva moist and clear, sclerae anicteric] Neck: No JVD/HJR, no thyromegaly or lymphadenopathy noted. Right carotid bruit appreciated Cardiac: [Regular rate and rhythm.] [No obvious murmur rub or gallop.] Left precordial area reveals well-healed pacemaker incision site. Lungs: [Clear to auscultation without accessory muscle use to assist the respiratory pattern.] Not requiring oxygen Abdomen: Soft, bowel sounds normoactive. Nontender and nondistended. No abdominal bruit or thrill noted. No masses noted. Musculoskeletal: No fluid collection. Decreased range of motion is noted. Extremities: No clubbing, cyanosis noted. [ No edema noted.] Upper extremity pulses 2+. Lower extremity pulses 2+. Capillary refill less than 3 seconds. Skin: No unusual lesions or rashes. No skin breakdown appreciated. Neuro: Awake, alert and oriented 3. Moves all extremities well without hemiparesis or paralysis. No essential tremor is appreciated. Result/EKG - Labs CBC & BMP: 03/25/17 10:33 03/25/17 10:33 Lab Results: I have reviewed the past 24 hour labs Labs: Laboratory Results - last 24 hr 03/25/17 03/25/17 03/25/17 09:42 10:33 10:33 WBC 4.7 RBC 3.99 Hgb 12.6 Hct 36.5 MCV 91.5 MCH 32 MCHC 34.5 RDW 12.1 Plt Count 165 MPV 10.0 Neut % (Auto) 76.9 H Lymph % (Auto) 15.4 L [place] % (Auto) 5.8 Eos % (Auto) 1.3 Baso % (Auto) 0.4 Neut # (Auto) 3.6 Lymph # (Auto) 0.7 L [place] # (Auto) 0.3 Eos # (Auto) 0.1 Baso # (Auto) 0.0 Immature Gran % 0.2 Nucleated RBC % 0.0 Immature Gran # 0.01 Nucleated RBCs # 0.00 Immature Plt Fraction 0.0 Sodium 140 Potassium 3.5 Chloride 105 Carbon Dioxide 26 Anion Gap 12.5 BUN 23 H Creatinine 1.50 H GFR Calculation 29 BUN/Creatinine Ratio 15.00 Glucose 105 Calculated Osmolality 282.4 Lactic Acid Calcium 9.5 Magnesium 2.4 Total Bilirubin 0.50 AST 21 ALT 15 Alkaline Phosphatase 58 Ammonia 28 Troponin I < 0.015 Total Protein 7.2 Albumin 4.0 Globulin 3.2 Albumin/Globulin Ratio 1.2 Free T4 TSH 3rd Generation 0.999 Prolactin Urine Color Yellow Urine Appearance Clear Urine pH 6.0 Ur Specific [place]icket 1.009 Urine Protein 30 Urine Glucose (UA) Negative Urine Ketones 5 Urine Blood Negative Urine Nitrate Negative Urine Bilirubin Negative Urine Urobilinogen < 2.0 H Urine Leukocytes Negative Urine RBC 1 Urine WBC 1 Urine Mucus Occasional Ur Culture Indicated? Not indicated Serum Alcohol < 15 L 03/25/17 03/25/17 03/25/17 10:33 10:33 10:33 WBC RBC Hgb Hct MCV MCH MCHC RDW Plt Count MPV Neut % (Auto) Lymph % (Auto) [place] % (Auto) Eos % (Auto) Baso % (Auto) Neut # (Auto) Lymph # (Auto) [place] # (Auto) Eos # (Auto) Baso # (Auto) Immature Gran % Nucleated RBC % Immature Gran # Nucleated RBCs # Immature Plt Fraction Sodium Potassium Chloride Carbon Dioxide Anion Gap BUN Creatinine GFR Calculation BUN/Creatinine Ratio Glucose Calculated Osmolality Lactic Acid 0.7 Calcium Magnesium Total Bilirubin AST ALT Alkaline Phosphatase Ammonia Troponin I Total Protein Albumin Globulin Albumin/Globulin Ratio Free T4 1.00 TSH 3rd Generation Prolactin 14.7 Urine Color Urine Appearance Urine pH Ur Specific [place] Urine Protein Urine Glucose (UA) Urine Ketones Urine Blood Urine Nitrate Urine Bilirubin Urine Urobilinogen Urine Leukocytes Urine RBC Urine WBC Urine Mucus Ur Culture Indicated? Serum Alcohol - Diagnostic Findings Procedure: Chest x-ray: report reviewed by me, CT: report reviewed by me - EKG EKG results: interpreted by me EKG shows: sinus rhythm (Pacing) Specialty Discharge - Follow Up or Referrals Follow up with: Sanket Li MD [Physician] - 1 Month (At discharge, one-month follow-up Dr. Li. Will need pacemaker interrogated and set up with [facility].) <Patience Ramirez - Last Filed: 03/25/17 15:31> History of Present Illness - Consult Narrative History of present illness: I have personally interviewed and evaluated the patient, reviewed the chart and discussed medical decision-making with Practitioner Osvaldo. I have read this note and agree with her documentation here in. The patient has dementia and may be taking her medications inappropriately. We will interrogate her device tomorrow. CC: Bob Ernst MD Physical Examination Vital Signs Temp Pulse Resp BP Pulse Ox 97.0 F L 70 18 100/70 99 03/25/17 08:20 08/21/17 08:20 03/25/17 08:20 03/25/17 08:20 03/25/17 08:20 Result/EKG - Labs CBC & BMP: 03/25/17 10:33 03/25/17 10:33 Labs: Laboratory Results - last 24 hr 03/25/17 03/25/17 03/25/17 09:42 10:33 10:33 WBC 4.7 RBC 3.99 Hgb 12.6 Hct 36.5 MCV 91.5 MCH 32 MCHC 34.5 RDW 12.1 Plt Count 165 MPV 10.0 Neut % (Auto) 76.9 H Lymph % (Auto) 15.4 L [place] % (Auto) 5.8 Eos % (Auto) 1.3 Baso % (Auto) 0.4 Neut # (Auto) 3.6 Lymph # (Auto) 0.7 L [place] # (Auto) 0.3 Eos # (Auto) 0.1 Baso # (Auto) 0.0 Immature Gran % 0.2 Nucleated RBC % 0.0 Immature Gran # 0.01 Nucleated RBCs # 0.00 Immature Plt Fraction 0.0 Sodium 140 Potassium 3.5 Chloride 105 Carbon Dioxide 26 Anion Gap 12.5 BUN 23 H Creatinine 1.50 H GFR Calculation 29 BUN/Creatinine Ratio 15.00 Glucose 105 Calculated Osmolality 282.4 Lactic Acid Calcium 9.5 Magnesium 2.4 Total Bilirubin 0.50 AST 21 ALT 15 Alkaline Phosphatase 58 Ammonia 28 Troponin I < 0.015 Total Protein 7.2 Albumin 4.0 Globulin 3.2 Albumin/Globulin Ratio 1.2 Free T4 TSH 3rd Generation 0.999 Prolactin Urine Color Yellow Urine Appearance Clear Urine pH 6.0 Ur Specific [place] 1.009 Urine Protein 30 Urine Glucose (UA) Negative Urine Ketones 5 Urine Blood Negative Urine Nitrate Negative Urine Bilirubin Negative Urine Urobilinogen < 2.0 H Urine Leukocytes Negative Urine RBC 1 Urine WBC 1 Urine Mucus Occasional Ur Culture Indicated? Not indicated Serum Alcohol < 15 L 03/25/17 03/25/17 03/25/17 10:33 10:33 10:33 WBC RBC Hgb Hct MCV MCH MCHC RDW Plt Count MPV Neut % (Auto) Lymph % (Auto) [place] % (Auto) Eos % (Auto) Baso % (Auto) Neut # (Auto) Lymph # (Auto) [place] # (Auto) Eos # (Auto) Baso # (Auto) Immature Gran % Nucleated RBC % Immature Gran # Nucleated RBCs # Immature Plt Fraction Sodium Potassium Chloride Carbon Dioxide Anion Gap BUN Creatinine GFR Calculation BUN/Creatinine Ratio Glucose Calculated Osmolality Lactic Acid 0.7 Calcium Magnesium Total Bilirubin AST ALT Alkaline Phosphatase Ammonia Troponin I Total Protein Albumin Globulin Albumin/Globulin Ratio Free T4 1.00 TSH 3rd Generation Prolactin 14.7 Urine Color Urine Appearance Urine pH Ur Specific [place] Urine Protein Urine Glucose (UA) Urine Ketones Urine Blood Urine Nitrate Urine Bilirubin Urine Urobilinogen Urine Leukocytes Urine RBC Urine WBC Urine Mucus Ur Culture Indicated? Serum Alcohol
[2017-03-25 16:01] LABS: Free T4 (Free Thyroxine) 1.04 NG/DL (0.76-1.46); Thyroid Stimulating Hormone 0.996 uIU/ml (0.358-3.74)
[2017-03-25] MEDS: amLODIPine 10 MG TABLET PO SCH (16:10)
[2017-03-26 05:06] LABS: Basophils % 0.7 % (0.0-0.8); Eosinophils # 0.1 10*3/uL (0.0-0.87); Eosinophils % 2.8 % (0.00-10.9); Hematocrit 33.1 VOL% (35.7-47.0); Immature Granulocytes % 0.2 %; Immature Granulocytes Absolute 0.01 #; Lymphocytes # 1.1 10*3/uL (1.4-4.0); Lymphocytes % 25.4 % (21.3-54.2); Mean Corpuscular HGB Conc 33.2 GM/DL (32-36); Mean Corpuscular Hemoglobin 31 PG (27-34); Mean Corpuscular Volume 91.9 FL (87-102); Monocytes # 0.4 10*3/uL (0.11-0.8); Monocytes % 10.4 % (1.7-12.7); Neutrophils # 2.6 10*3/uL (1.4-7.4); Neutrophils % 60.5 % (38.7-73.9); Platelet Count 141 T/CUMM (130-400); Red Cell Distribution Width 12.1 % (9.3-17.3); White Blood Count 4.3 T/CUMM (4-12)
[2017-03-26 05:39] LABS: Calcium 8.6 MG/DL (8.5-10.1); Magnesium 2.4 MG/DL (1.8-2.4); Potassium 3.2 MMOL/L (3.5-5.1)
[2017-03-26] MEDS ORDERED: amLODIPine 10 MG TABLET PO SCH (09:00)
[2017-03-26] MEDS ORDERED: METOPROLOL SUCCINATE XL 25 MG TABLET PO SCH (09:00)
[2017-03-26] MEDS: ASPIRIN EC 81 MG TABLET PO SCH (10:04)
[2017-03-26] MEDS: amLODIPine 10 MG TABLET PO SCH (10:05)
[2017-03-26] MEDS ORDERED: POTASSIUM CHLORIDE 20 MEQ TABLET PO STA (10:30)
--- NOTE | 2017-03-26 10:30 | Hospitalist Progress Note ---
Assessment and Plan (1) Sick sinus syndrome Status: Acute Assessment and plan: Impression: 1. Sick sinus syndrome with recent pacemaker 2. Dizziness, possibly related to #1 3. Hypertension 4. Baseline dementia, likely Alzheimer's type 5. Hypokalemia Plan: Await disposition from social service regarding long-term care. Supplement potassium. This note was completed using [employer] voice recognition software. There may be audit analyst errors as a result. Current Visit: No Hospitalist: Subjective Interval history: Follow-up near syncope. Cardiology has seen the patient. The pacemaker has been interrogated, and appears to be functioning normally. Patient still somewhat confused. Social service is aware of the situation, and the family is apparently trying to establish some sort of conservatorship. In any event, we will wait on clearance from social work before discharge. The etiology of the patient's syncopal event may not ever be determined. She just had a workup within the past month, and this does not need to be repeated. Exam - Constitutional Vitals: Period Temp Pulse Resp BP Sys/Greene Pulse Ox Last 24 Hr 96.3 F-98.2 F 56-79 16-20 100-189/55-81 93-100 Vital signs are noted above. Heart is regular with a soft systolic murmur no gallop. Lungs are clear with no rales or wheezes. Abdomen is soft without mass. She is awake and conversant, but remains confused. Results - Labs CBC & BMP: 03/26/17 04:49 03/26/17 04:49 Lab Results: I have reviewed the past 24 hour labs Specialty Discharge - Follow Up or Referrals Follow up with: Sanket Li MD [Physician] - 1 Month (At discharge, one-month follow-up Dr. Li. Will need pacemaker interrogated and set up with [facility].)
--- NOTE | 2017-03-26 11:25 | Cardiology Progress Note ---
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 SKY SUMMARY: Ms. Giles, 86WF, with no known history of CAD but risk factors significant for: Advanced age, hypertension, sedentary lifestyle, PVD. History of dementia. History of symptomatic bradycardia for which underwent dual- chamber pacemaker implantation March 01, 2017. Tolerated the procedure well without complication was discharged home in stable condition. She did not return for her one-week follow-up for pacemaker interrogation nor has she been seen in [facility]. February 26, 2017 echocardiogram: EF 55%, diastolic dysfunction and no significant valvular abnormality, PAP 45 mmHg Patient is a poor historian, there is no family at the bedside. The majority of this information is taken from medical records and staff. Patient was admitted March 24, 2017 after complaints of being dizzy and near syncope. She was found to be hypotensive with blood pressure noted to be 100/70, heart rate 70. There was some concern regarding possible arrhythmia contributing to her near syncope and dizziness. Pacemaker was interrogated this morning and found to be working appropriately. Last VT episode was 03/17/2017 and lasted only four seconds. Blood pressure rebounded and antihypertensives were reincorporated into her medication regimen, blood pressure better controlled this morning. Systolic blood pressure still suboptimally controlled. Will increase Metoprolol to 50 mg orally daily, verifying she receives an additional 25 mg now. donor services coordinator is working to secure a plan for discharge as the patient seems to be having some difficulty managing her health at home. At this time, Dr. Ramirez has seen and evaluated Ms. Giles. Patient will be given another follow-up appointment with Dr. Sky in approximately 4 weeks. Nothing further to add from cardiology standpoint at this time we will sign off. Please feel free to contact cardiology for additional cardiac needs. ASSESSMENT/PLAN: 1. DIZZINESS -thought to be related to hypotension, possibly related to overmedication at home due. His maker interrogated and found to be working appropriately. 2. HYPOTENSION - on arrival, patient was hypotensive. Now blood pressures rebounded since antihypertensives have been held and adjusting meds 3. S/P PPM IMPLANTATION - device interrogated this morning. Functioning appropriately. Healing appropriately. 4. DEMENTIA - unfortunately, it appears that Ms. Giles has had dementia which could possibly be now contributing to her health. Him afraid she may not be taking her medications as prescribed as she did appear to be significantly hypotensive on arrival. Long-term living plans should be addressed with her family and I will attending is working toward this. 5. HYPERTENSION - increasing Metoprolol today. Exam (Progress Note) - Constitutional Vitals: Period Temp Pulse Resp BP Sys/Greene Pulse Ox Last 24 Hr 96.3 F-98.2 F 56-79 16-20 130-189/55-81 93-97 Exam: General: [Appears well with no apparent distress.] [Pleasant and cooperative. ] [Appears comfortable.] HEENT: [PERRL, normocephalic, atraumatic. Mucous membranes moist. No jaundice noted. Conjunctiva moist and clear, sclerae anicteric] Neck: No JVD/HJR, no thyromegaly or lymphadenopathy noted. No carotid bruit appreciated Cardiac: [Regular rate and rhythm.] [No murmur rub or gallop.] Lungs: [Clear to auscultation without accessory muscle use to assist the respiratory pattern.] Not requiring oxygen Abdomen: Soft, bowel sounds normoactive. Nontender and nondistended. No abdominal bruit or thrill noted. No masses noted. Musculoskeletal: No fluid collection. Decreased range of motion is noted. Extremities: No clubbing, cyanosis noted. [ No edema noted.] Upper extremity pulses 2+. Lower extremity pulses 2+. Capillary refill less than 3 seconds. Skin: No unusual lesions or rashes. No skin breakdown appreciated. Neuro: Awake, alert and oriented 3. Moves all extremities well without hemiparesis or paralysis. No essential tremor is appreciated. Result/EKG - Labs CBC & BMP: 03/26/17 04:49 03/26/17 04:49 Lab Results: I have reviewed the past 24 hour labs Labs: Laboratory Results - last 24 hr 03/25/17 03/25/17 03/25/17 10:33 10:33 10:33 WBC RBC Hgb Hct MCV MCH MCHC RDW Plt Count MPV Neut % (Auto) Lymph % (Auto) [place] % (Auto) Eos % (Auto) Baso % (Auto) Neut # (Auto) Lymph # (Auto) [place] # (Auto) Eos # (Auto) Baso # (Auto) Immature Gran % Nucleated RBC % Immature Gran # Nucleated RBCs # Immature Plt Fraction Sodium 140 Potassium 3.5 Chloride 105 Carbon Dioxide 26 Anion Gap 12.5 BUN 23 H Creatinine 1.50 H GFR Calculation 29 BUN/Creatinine Ratio 15.00 Glucose 105 Calculated Osmolality 282.4 Calcium 9.5 Magnesium 2.4 Total Bilirubin 0.50 AST 21 ALT 15 Alkaline Phosphatase 58 Troponin I < 0.015 Total Protein 7.2 Albumin 4.0 Globulin 3.2 Albumin/Globulin Ratio 1.2 Free T4 1.00 TSH 3rd Generation 0.999 Prolactin 14.7 Serum Alcohol < 15 L 03/25/17 03/26/17 03/26/17 Unknown 04:49 04:49 WBC 4.3 RBC 3.60 L Hgb 11.0 L Hct 33.1 L MCV 91.9 MCH 31 MCHC 33.2 RDW 12.1 Plt Count 141 MPV 10.0 Neut % (Auto) 60.5 Lymph % (Auto) 25.4 [place] % (Auto) 10.4 Eos % (Auto) 2.8 Baso % (Auto) 0.7 Neut # (Auto) 2.6 Lymph # (Auto) 1.1 L [place] # (Auto) 0.4 Eos # (Auto) 0.1 Baso # (Auto) 0.0 Immature Gran % 0.2 Nucleated RBC % 0.0 Immature Gran # 0.01 Nucleated RBCs # 0.00 Immature Plt Fraction 0.0 Sodium 143 Potassium 3.2 L Chloride 108 H Carbon Dioxide 29 Anion Gap 9.2 BUN 17 Creatinine 1.30 H GFR Calculation 34 BUN/Creatinine Ratio 13.00 Glucose 91 Calculated Osmolality 286.0 Calcium 8.6 Magnesium 2.4 Total Bilirubin AST ALT Alkaline Phosphatase Troponin I Total Protein Albumin Globulin Albumin/Globulin Ratio Free T4 1.04 TSH 3rd Generation 0.996 Prolactin Serum Alcohol - Diagnostic Findings Procedure: Chest x-ray: report reviewed by me - EKG EKG results: interpreted by me EKG shows: sinus rhythm Specialty Discharge - Follow Up or Referrals Follow up with: Sanket Li MD [Physician] - (appt should be with dr sky) Piero Sky MD [Physician] - 1 Month (to see dr sky in clinic in 1 month, also make sure patient is set up for pacemaker checks at clinic) <Patience Ramirez - Last Filed: 03/26/17 17:56> Cardiology - PN: Subj Interval history: I have personally interviewed and evaluated the patient, reviewed the chart and discussed medical decision-making with Practitioner Osvaldo. I have read this note and agree with her documentation here in. Exam (Progress Note) - Constitutional Vitals: Period Temp Pulse Resp BP Sys/Greene Pulse Ox Last 24 Hr 97.3 F-98.2 F 56-79 16-20 130-184/55-81 93-97 Result/EKG - Labs CBC & BMP: 03/26/17 04:49 03/26/17 04:49 Labs: Laboratory Results - last 24 hr 03/26/17 03/26/17 04:49 04:49 WBC 4.3 RBC 3.60 L Hgb 11.0 L Hct 33.1 L MCV 91.9 MCH 31 MCHC 33.2 RDW 12.1 Plt Count 141 MPV 10.0 Neut % (Auto) 60.5 Lymph % (Auto) 25.4 [place] % (Auto) 10.4 Eos % (Auto) 2.8 Baso % (Auto) 0.7 Neut # (Auto) 2.6 Lymph # (Auto) 1.1 L [place] # (Auto) 0.4 Eos # (Auto) 0.1 Baso # (Auto) 0.0 Immature Gran % 0.2 Nucleated RBC % 0.0 Immature Gran # 0.01 Nucleated RBCs # 0.00 Immature Plt Fraction 0.0 Sodium 143 Potassium 3.2 L Chloride 108 H Carbon Dioxide 29 Anion Gap 9.2 BUN 17 Creatinine 1.30 H GFR Calculation 34 BUN/Creatinine Ratio 13.00 Glucose 91 Calculated Osmolality 286.0 Calcium 8.6 Magnesium 2.4
[2017-03-26] MEDS ORDERED: METOPROLOL SUCCINATE XL 25 MG TABLET PO ONE (11:30)
[2017-03-26] MEDS: ENOXAPARIN 30 MG/0.3 ML SYRINGE SUBCUT SCH (15:13)
[2017-03-27 08:36] VITALS: BP 176/73
[2017-03-27] MEDS ORDERED: METOPROLOL SUCCINATE XL 50 MG TABLET PO SCH (09:00)
[2017-03-27] MEDS: ASPIRIN EC 81 MG TABLET PO SCH (09:14)
[2017-03-27] MEDS: amLODIPine 10 MG TABLET PO SCH (09:14)
--- NOTE | 2017-03-27 10:16 | Discharge Summary ---
Hospital Course - Hospital Course Hospital Course: Discharge diagnosis: 1. Near syncope, etiology not known 2. A recent pacemaker implant 3. Dementia Patient presented to the hospital for evaluation of a near syncopal episode. She exhibited obvious signs of dementia. Family members were either unwilling or unable to help us with any sort of appropriate disposition. She is therefore being discharged home after a negative evaluation by cardiology. Medication reconciliation has been performed. Regular diet. Activity as tolerated. Follow-up with local physician. Home health and intermediate are being resumed. This note was completed using [employer] voice recognition software. There may be travel agency manager errors as a result. Diagnosis - Discharge Diagnosis (1) Sick sinus syndrome Status: Acute Specialty Discharge - Follow Up or Referrals Follow up with: Sanket Li MD [Physician] - (appt should be with dr becerril) Piero Becerril MD [Physician] - 1 Month (to see dr becerril in clinic in 1 month, also make sure patient is set up for pacemaker checks at clinic) Discharge Plan - Discharge Data Disposition: Home Health Service Condition at Discharge: Stable Discharge Diet: advance to your usual diet Activity: resume usual activities as tolerated Hygiene: no restrictions Weight Bearing at Discharge: full weight bearing - Discharge Medications Continue Potassium Chloride Cap/Tab [K Dur] 20 meq PO DAILY Furosemide Tab [Lasix Tab] 40 mg PO DAILY hydrALAZINE TAB [Apresoline Tab] 100 mg PO TID amLODIPine [Norvasc] 10 mg PO DAILY Aspirin EC Tab 81 mg PO DAILY - Follow Up or Referral Follow Up: Sanket Li MD [Physician] - (appt should be with dr becerril) Piero Becerril MD [Physician] - 1 Month (to see dr becerril in clinic in 1 month, also make sure patient is set up for pacemaker checks at clinic) - Forms/Instructions Exam - Constitutional Vitals: Period Temp Pulse Resp BP Sys/Greene Pulse Ox Last 24 Hr 96.9 F-98.1 F 60-80 18-20 135-176/61-88 95-97 Vital signs are noted above. Heart is regular with no murmur. Chest is clear with no rales or wheezes. Abdomen is soft with no mass. She is awake and conversant, but confused. Discharge Results Procedures and tests throughout hospitalization: Pending Orders 03/25/17 10:01 Blood Culture Stat Labs on day of discharge: Preliminary micro results at discharge 03/25/17 10:01 Blood Culture - Preliminary Blood No growth at 1 day 03/25/17 10:01 Blood Culture - Preliminary Blood No growth at 1 day DS: Provider Date of admission: 03/25/17 12:08 Primary care physician: Clive Ward MD Attending physician on admission: Bob Ernst MD Consults: 03/25/17 12:47 Consult to Physician [CONS] Routine Comment: dizziness, recent pacemaker Consulting Provider: Cardiology - [facility] Consulting Provider Notified: Yes When should Consulting Provider be notified: Now Consult to Specialist Group: Cardiology When should Consulting Provider be notified: Now Person Notified: MARISOL Date Notified: 03/25/17 Time Notified: 13:56 03/25/17 12:50 Consult to Case Mgmt/Social Srvs [CONS] Routine Reason for Case Mgmt/Social Srvs: Discharge Planning 03/25/17 14:16 Consult to Dietitian [CONS] Routine Reason for Dietitian: Other Consult Comment: reports recent weight loss. Discharging clinician: Bob Ernst MD Expected date of discharge: 03/27/17
== END 2017-03-27 11:54 | disposition home health service (06) | DRG 312 ==
LOC: EDBD → EDUNIT# → N.ED 08:20 → N.EDINP 12:08 → N.4E 13:10
PROVIDERS: ADMIT Internal Medicine Geriatric Medicine; ATTEND Internal Medicine Geriatric Medicine